=== PATIENT | male | born 1995 | race Two or more races ===

== ENCOUNTER 2024-08-21 10:12 | Outpatient (AMB) | payer MEDICAID, SELFPAY ==
[2024-08-21 10:17] VITALS: BP 122/68; PULSE 73; RESP 19; TEMP 36.7; O2SAT 97; BMI 30.2
--- NOTE | 2024-08-21 10:17 | PD.RESCLINIC ---
Vital Signs 08/21/24 10:17 Height 1.7 m Height Method Stated Weight 87.203 kg Weight Measurement Method Standing Scale BMI 30.2 BP 122/68 Blood Pressure Source Automatic Cuff Blood Pressure Location Left Upper Arm Position Sitting Respiration 19 Pulse 73 Pulse Source Monitor Temp 98.1 F Temp Source Oral Pulse Oximetry (%) 97 Oxygen Delivery Method Room Air Allergies/Meds Allergies & Medications Allergies No Known Allergies Allergy (Verified 08/21/24 10:18) Medication Reconciliation buspirone 5 mg tablet 5 mg PO BID anxiety #60 tabs 07/24/24 [Rx Confirmed 08/21/24] sertraline 50 mg tablet 50 mg PO QDAY #30 tabs 07/24/24 [Rx Confirmed 08/21/24] nicotine 21mg/24hr-14mg/24hr-7mg/24hr daily transderm patches,sequentl See Rx Instructions transdermal .COMPLEX #56 patches 08/21/24 [Rx] MA Intake Visit Data Collection New Patient or Established: Established Patient (seen at [facility] within 3 years) Seen by Clinical Staff ONLY (RN/MA): No Pain Present Currently: No Pain scale:: 0 Pain Scale Used: Pavon-Naylor/Numerical PCP or OBGYN visit in last 3 months: Yes Do You Feel Safe at Home: Yes Authorities Contacted: N/A Smoking Status Smoking Status: Former smoker Immunization / Flu Flu Vaccine in the Last 12 Months: No Flu Vaccine Exclusion Criteria: No Exclusion Criteria Past Medical History Past Medical History NEUROLOGIC: Negative Neurological Disorders CARDIAC: Negative Cardiac Disorders or Congestive Heart Failure RESPIRATORY: Negative Chronic Obstructive Pulmonary Disease (COPD) GASTROINTESTINAL: Negative Gastrointestinal Disorders or Hepatitis GENITOURINARY: Negative Genitourinary Disorders or Renal Disease ENDOCRINE: Positive Endocrine Disorders and Diabetes Mellitus Type 2; Negative Diabetes Mellitus Type 1 HEMATOLOGIC: Negative Blood Disorders OTHER HISTORY: Negative Human Immunodeficiency Virus (HIV), Chicken Pox, Measles, Mumps, Rubella (English Measles), Pertussis, Clostridium Difficile or Cancer Social History SMOKING STATUS: Smoking status: Former smoker SECOND HAND EXPOSURE: second hand exposure: No ALCOHOL: Alcohol Intake: Never HOUSING: Housing: House LIVES WITH: Lives With: Significant Other Patient Portal Questionaires PHQ-9 PHQ-2 Over the last 2 weeks, how often have you been bothered by any of the following problems? 1. Little interest or pleasure in doing things: nearly every day PHQ-9 8. Moving or speaking so slowly that other people could have noticed? - Or the opposite - being so fidgety or restless that you have been moving around a lot more than usual: more than half the days Source: Developed by Drs. Karlo Rice, Rosalina Cueva, Rob Gregory and colleagues, with an educational bj from [employer]. Social History Living Situation History Housing: House Tobacco History Smoking Status: Former smoker tobacco type: e-cigarettes Second Hand Smoke Exposure: No Alcohol History Alcohol Intake: Never Domestic Abuse History Do You Feel Safe at Home: Yes Review of Systems Report any current symptoms Only answer those that you have currently: Past Medical History Past Medical History Have you ever been diagnosed with any of the following: Cardiology Problems Congestive Heart Failure: No Respiratory Problems Chronic Obstructive Pulmonary Disease (COPD): No Stomache/Intestinal Problems Hepatitis: No Genital/Urinary Problems Renal Disease: No Endocrine Problems Diabetes Mellitus Type 1: No Diabetes Mellitus Type 2: Yes Other Problems Human Immunodeficiency Virus (HIV): No Chicken Pox: No Measles: No Mumps: No Rubella (English Measles): No Pertussis: No Clostridium Difficile: No Cancer: No History of Present Illness HPI Narrative Patient is a 28 year old male with a past medical history of poly-substance use disorder (cocaine and marijuana use) and history of major depression. One previous visit patient had an elevated blood surgar and treated for DKA in 2022 and during that time was place on metformin and Rybelsus. Since 2023, patient has not required any diabetic medication and is currently has been abstient of cocaine and marijuan since previous visit (July 2024). Patient diened any symptoms of diabetes such as polyuria or polydispsia. Increase in weight, likley from decrease cocaine use. Patient still struggles with eating candies like choclate but has cut back significantly. Jerry also stated his anxiety has improved with with Buspirone 5 mg PO BID and Sertraline 50 mg QDay. Has two months of refills. Jerry followed up on his labs. A1c 6.1 and Chlaymdia and Gonorrhea are negative. Follow up with provider in 8 weeks for medication refills via phone follow. Review of Systems Review of Systems Narrative Review of Systems: General appearance: NO weight change, NO fatigue, NO weakness, NO fever, NO chills, NO night sweats, No cough Skin: NO rash, NO itching, NO sores, NO moles HEENT: NO Trauma, NO nausea, NO vomiting, NO visual changes, NO blurry vision, NO double vision, NO tinnitus, NO vertigo, NO ear discharge, NO rhinorrhea, NO stuffiness, NO sneezing, NO allergy, NO epistaxis. NO Hoarseness, NO sore throat, NO swollen neck. Cardiac: NO Palpitations, NO dyspnea on exertion, NO orthopnea, NO paroxysmal nocturnal dyspnea, NO edema Respiratory: NO Shortness of Breath, NO Wheezing, NO Cough, NO Sputum, NO hemoptysis GI:NO appetite, NO nausea, NO vomiting, NO dysphagia, NO changes in bowel frequency, NO stool color, NO diarrhea, NO constipation, NO hemetemesis, NO hemorrhoids, NO melena, NO hematechezia, NO abdominal pain, NO jaundice Renal: NO frequency, NO hesitancy, NO urgency, NO hematuria, NO nocturia, NO incontinence MSK: NO muscle weakness, NO gout, NO arthritis, NO muscle stiffness Neuro: NO headaches, NO tremors, NO weakness, NO paralysis, NO seizures, NO loss of consciousness, NO numbness. Hem: NO anemia, NO easy bruising/bleeding, NO petechiae, NO purpura Endo: NO heat/cold intolerance, NO excessive sweating, NO polyuria, NO polydipsia, NO polyphagia, NO thyroid problems, NO diabetes Pysch: NO mood, YES anxiety, YES depression Objective/Exam Narrative Physical exam: Vitals: T 98.1, BP 122/68, HR 73, RR 19, SpO2 97 General Appearance: Alert and Orientated x3, well-nourished male who is sitting on exam room in no acute ditress Thorax/Lungs: Symmetrical with good expansion. Chest and back non-tender. Lungs resonant to percussion. Breath sounds vesicular without crackles, wheezes, or rhonchi Cardiovascular/Peripheral Vascular: No jugular venous distention noted. S1 and S2 heart sounds regular, no murmurs or extra heart sounds auscultated. No peripheral edema noted. Abdomen: Bowel sounds are active. No tenderness to deep or light palpation. Assessment & Plan Diagnosis / Problem List (1) Anxiety: Status: Acute Assessment & Plan: Patient continues to remain abstinent from cocaine and marijuarn. Patient stated his anxiety has improved and feels Buspirone 5 mg BID has worked for him without any side effects. Plan: Continue Buspirone 5 mg BID Nicotine Patch Follow up in 8 weeks with telephone interview (2) Depression: Status: Acute Qualifiers: Active/Remission status: currently active Depression Type: major depressive disorder Major depression episode severity: moderate Major depression recurrence: recurrent Qualified Code(s): F33.1 - Major depressive disorder, recurrent, moderate Assessment & Plan: Patient denied suicide thoughts or thoughts of harming himself/others. Some of the depression was initially from a break up from his long time girlfriend/partner but during this visit he has come to realize he is doing ok and thinks its for the best. Plan: -Continue Sertraline 50 mg PO Qday -Would like to follow up with a psychologist. Additional Assessment - The patient's plan was discussed with attending Dr. Pro. Radha Verdin MD PGY1 Internal Medicine Attending note: I, Haroon Pro MD, attest that I was physically present for the weeks portions of the service and evaluated the patient with the resident and I reviewed and discussed the case with the resident and agree with the resident's findings and plans of care as documented above. Follow-up visit. Hemoglobin A1c of 6.1 is at goal without medication. Diabetes self-care reviewed including diet, exercise, footcare, eye care.. Anxiety improved with current medication regimen. STI testing negative. Haroon Pro MD Physician Billing Established Patient Established Patient: E/M Level 3-CPT 62677 Office Procedures [facility] Level of Care Nursing/Assessment Patient Status: Established Patient Nursing Assessment/Reassessment: Medication Reconciliation, Update PMH in EMR and Vital Signs Coordination of Care: Complex Care and Chronic Disease 1-5, Education Complex Pt/Fam, Results/Orders obtained and Staff clarify orders Established Patient Charge Established Patient Point Assignment: 90 Established Patient Point Charge: Level 3 (80-115)
== END 2024-08-21 11:11 | disposition home or self-care (01) ==
LOC: HODAHC 10:12
PROVIDERS: Supervising Provider Internal Medicine
DX: F41.9 Anxiety disorder, unspecified (principal); F32.9 Major depressive disorder, single episode, unspecified; Z79.899 Other long term (current) drug therapy
CPT/HCPCS: 99213; G0463

== ENCOUNTER 2024-10-30 09:23 | Outpatient (AMB) | payer MEDICAID, SELFPAY ==
--- NOTE | 2024-10-30 09:45 | ACNOTE_ITS ---
Vital Signs 10/30/24 09:46 Height 1.78 m Height Method Stated Weight 88.451 kg Weight Measurement Method Standing Scale BMI 27.9 BP 126/74 Blood Pressure Source Automatic Cuff Blood Pressure Location Left Upper Arm Position Sitting Respiration 17 Pulse 86 Pulse Source Monitor Temp 97.6 F Temp Source Temporal Artery Scan Pulse Oximetry (%) 93 L Oxygen Delivery Method Room Air Allergies/Meds Allergies & Medications Allergies No Known Allergies Allergy (Verified 10/30/24 09:47) Medication Reconciliation buspirone 5 mg tablet 5 mg PO BID anxiety #60 tabs 10/30/24 [Rx] sertraline 50 mg tablet 50 mg PO QDAY #30 tabs 10/30/24 [Rx] MA Intake Visit Data Collection New Patient or Established: Established Patient (seen at [facility] within 3 years) Seen by Clinical Staff ONLY (RN/MA): No Pain Present Currently: No Pain scale:: 0 Pain Scale Used: Pavon-Naylor/Numerical Visual Designer Required: No PCP or OBGYN visit in last 3 months: Yes Hx Now: No Do You Feel Safe at Home: Yes Authorities Contacted: N/A Smoking Status Smoking Status: Former smoker Immunization / Flu Flu Vaccine in the Last 12 Months: No Flu Vaccine Exclusion Criteria: No Exclusion Criteria Past Medical History Past Medical History NEUROLOGIC: Negative Neurological Disorders CARDIAC: Negative Cardiac Disorders or Congestive Heart Failure RESPIRATORY: Negative Chronic Obstructive Pulmonary Disease (COPD) GASTROINTESTINAL: Negative Gastrointestinal Disorders or Hepatitis GENITOURINARY: Negative Genitourinary Disorders or Renal Disease ENDOCRINE: Positive Endocrine Disorders and Diabetes Mellitus Type 2; Negative Diabetes Mellitus Type 1 HEMATOLOGIC: Negative Blood Disorders OTHER HISTORY: Negative Human Immunodeficiency Virus (HIV), Chicken Pox, Measles, Mumps, Rubella (Guyanese Measles), Pertussis, Clostridium Difficile or Cancer Social History SMOKING STATUS: Smoking status: Former smoker SECOND HAND EXPOSURE: second hand exposure: No ALCOHOL: Alcohol Intake: Never HOUSING: Housing: House LIVES WITH: Lives With: Significant Other Patient Portal Questionaires PHQ-9 PHQ-2 Over the last 2 weeks, how often have you been bothered by any of the following problems? 1. Little interest or pleasure in doing things: nearly every day PHQ-9 8. Moving or speaking so slowly that other people could have noticed? - Or the opposite - being so fidgety or restless that you have been moving around a lot more than usual: more than half the days Source: Developed by Drs. Karlo Rice, Rosalina Cueva, Rob Gregory and colleagues, with an educational bj from [employer]. Social History Living Situation History Housing: House Tobacco History Smoking Status: Former smoker tobacco type: e-cigarettes Second Hand Smoke Exposure: No Alcohol History Alcohol Intake: Never Domestic Abuse History Do You Feel Safe at Home: Yes Review of Systems Report any current symptoms Only answer those that you have currently: Past Medical History Past Medical History Have you ever been diagnosed with any of the following: Cardiology Problems Congestive Heart Failure: No Respiratory Problems Chronic Obstructive Pulmonary Disease (COPD): No Stomache/Intestinal Problems Hepatitis: No Genital/Urinary Problems Renal Disease: No Endocrine Problems Diabetes Mellitus Type 1: No Diabetes Mellitus Type 2: Yes Other Problems Human Immunodeficiency Virus (HIV): No Chicken Pox: No Measles: No Mumps: No Rubella (Guyanese Measles): No Pertussis: No Clostridium Difficile: No Cancer: No History of Present Illness HPI Narrative Patient is a 28 year old male with a past medical history of poly-substance use disorder (cocaine and marijuana use), major depression, and generalized anxiety. Patient denied any substance use since July 2024 and improved weight since July 2024 when he was still using cocaine. Patient denied any suicidal ideation or thoughts of harming others. Current PHQ 9-0. Improved LOUIE at 3. Decreased overall days of anxiety and intrusive thoughts. Patient has continued to take Buspirone 5 mg PO BID and Sertraline 50 mg PO QDay. Nicotine patch did not help despite changing it frequently. Patient declined nicotine gum. Continues to vape one cartridge per week. Patient denied polyuria or polydipsia. Patient has had increased intake of soda recently. Patient counseled that increased sugar in-take puts him at risk of diabetes given previous A1c 6.2% Please follow up in 6 months to determine re-evaluate LOUIE and Depression. Review of Systems Review of Systems Narrative Review of Systems: General appearance: Yes weight change as polysubstance use has decreased, NO fatigue, NO weakness, NO fever, NO chills, NO night sweats, No cough Skin: NO rash, NO itching, NO sores, NO moles HEENT: NO Trauma, NO nausea, NO vomiting, NO visual changes, NO blurry vision, NO double vision, NO tinnitus, NO vertigo, NO ear discharge, NO rhinorrhea, NO stuffiness, NO sneezing, NO allergy, NO epistaxis. NO Hoarseness, NO sore throat, NO swollen neck. Cardiac: NO Palpitations, NO dyspnea on exertion, NO orthopnea, NO paroxysmal nocturnal dyspnea, NO edema Respiratory: NO Shortness of Breath, NO Wheezing, NO Cough, NO Sputum, NO hemoptysis GI:NO appetite, NO nausea, NO vomiting, NO dysphagia, NO changes in bowel frequency, NO stool color, NO diarrhea, NO constipation, NO hemetemesis, NO hemorrhoids, NO melena, NO hematechezia, NO abdominal pain, NO jaundice Renal: NO frequency, NO hesitancy, NO urgency, NO hematuria, NO nocturia, NO incontinence MSK: NO muscle weakness, NO gout, NO arthritis, NO muscle stiffness Neuro: NO headaches, NO tremors, NO weakness, NO paralysis, NO seizures, NO loss of consciousness, NO numbness. Hem: NO anemia, NO easy bruising/bleeding, NO petechiae, NO purpura Endo: NO heat/cold intolerance, NO excessive sweating, NO polyuria, NO polydipsia, NO polyphagia, NO thyroid problems, NO diabetes Pysch: NO mood, IMPROVED anxiety, IMPROVED Depression Objective/Exam Narrative Physical exam: Vitals: BP 126/74, HR 86 RR 17 General Appearance: Alert and Orientated x3, well-nourished Male who is sitting in exam room Thorax/Lungs: Symmetrical with good expansion. Chest and back non-tender. Lungs resonant to percussion. Breath sounds vesicular without crackles, wheezes, or rhonchi Cardiovascular/Peripheral Vascular: No jugular venous distention noted. S1 and S2 heart sounds regular, no murmurs or extra heart sounds auscultated. No peripheral edema noted. Abdomen: Bowel sounds are active. No tenderness to deep or light palpation. Assessment & Plan Diagnosis / Problem List (1) Anxiety: Status: Acute Assessment & Plan: Improved Generalized Anxiety, LOIUE score of 3. Denied substance use recently. Plan: Continue Buspirone 5 mg BID Follow up in 6 months (2) Depression: Status: Acute Qualifiers: Active/Remission status: currently active Depression Type: major depressive disorder Major depression episode severity: moderate Major depression recurrence: recurrent Qualified Code(s): F33.1 - Major depressive disorder, recurrent, moderate Assessment & Plan: Improved PHQ 9-0. Denied suicidal ideation or thought of hurting others. Follow up in 6 months. Plan Sertraline 50 mg PO QDay. Additional Assessment Master Problem List Generalized Anxiety Depression Poly-substance Use Disorder (Marijuana and Cocaine) Nicotine Use Disorder (vapes) history of Diabetes Mellitus Type II, medication D/C, most recent A1c 6.2% Follow Up: 6 months follow up for LOUIE and Depression Scores: PHQ9 =0 GAD7=3 - The patient's plan was discussed with attending Dr. Inocencia Verdin MD PGY1 Internal Medicine Additional Plan Internal Medicine Attending Note: Case discussed with and agree with note and management plan of Resident Physician as per Resident's Note above. Issues of concern for present visit are as follows: Follow-up visit. History of major depression along with generalized anxiety. Symptoms improved with sertraline and buspirone. Patient continues nicotine use through a vape 1 cartridge per week. Continue present medications as patient is doing well with these. Patient did try nicotine patches but did not help with nicotine use. Haroon Pro MD Physician Billing Established Patient Established Patient: E/M Level 3-CPT 70460 Office Procedures [facility] Level of Care Nursing/Assessment Patient Status: Established Patient Nursing Assessment/Reassessment: Medication Reconciliation, Update PMH in EMR and Vital Signs Coordination of Care: Complex Care and Chronic Disease 1-5, Consent,records obtained, informed consent, Education Simp Pt/Fam, Lab and Imaging orders and Staff clarify orders Established Patient Charge Established Patient Point Assignment: 100 Established Patient Point Charge: EP Level 3 (80-115)
[2024-10-30 09:46] VITALS: BP 126/74; PULSE 86; RESP 17; TEMP 36.4; O2SAT 93; BMI 27.9
== END 2024-10-30 09:56 | disposition home or self-care (01) ==
PROVIDERS: Supervising Provider Internal Medicine
DX: F41.1 Generalized anxiety disorder (principal); F33.9 Major depressive disorder, recurrent, unspecified
CPT/HCPCS: 99213; G0463

== ENCOUNTER 2024-11-29 10:52 | Outpatient (AMB) | payer MEDICAID, SELFPAY ==
[2024-11-29 10:58] VITALS: BP 118/73; PULSE 74; RESP 14; TEMP 36.6; O2SAT 98; BMI 24.2
--- NOTE | 2024-11-29 10:58 | PD.RESCLINIC ---
Vital Signs 11/29/24 10:58 Height 1.78 m Height Method Stated Weight 76.657 kg Weight Measurement Method Standing Scale BMI 24.2 BP 118/73 Blood Pressure Source Automatic Cuff Blood Pressure Location Left Upper Arm Position Sitting Respiration 14 Pulse 74 Pulse Source Monitor Temp 97.8 F Temp Source Oral Pulse Oximetry (%) 98 Oxygen Delivery Method Room Air Allergies/Meds Allergies & Medications Allergies No Known Allergies Allergy (Verified 12/02/24 13:49) Medication Reconciliation buspirone 5 mg tablet 5 mg PO BID anxiety #60 tabs 10/30/24 [Rx Confirmed 12/02/24] sertraline 50 mg tablet 50 mg PO QDAY #30 tabs 10/30/24 [Rx Confirmed 12/02/24] famotidine 40 mg tablet 40 mg PO QDAY dyspepsia #14 tabs 11/29/24 [Rx Confirmed 12/02/24] ondansetron 4 mg disintegrating tablet 4 mg PO Q6H PRN nausea and vomiting #14 tabs 11/29/24 [Rx Confirmed 12/02/24] 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 sensor (FreeStyle Ramya 3 Sensor device) #1 ea 12/02/24 [Rx] insulin glargine 100 unit/mL (3 mL) subcutaneous pen 15 unit (0.15 mL) subcut QDAY 1 month #15 mL 12/02/24 [Rx] insulin lispro 100 unit/mL subcutaneous pen (Admelog SoloStar U-100 Insulin lispro) 5 unit (0.05 mL) subcut TID #15 mL 12/02/24 [Rx] pen needle, diabetic 32 gauge x 1/4 #100 ea 12/02/24 [Rx] MA Intake Visit Data Collection New Patient or Established: Established Patient (seen at [facility] within 3 years) Seen by Clinical Staff ONLY (RN/MA): No Reason for Visit:: NAUSEA, VOMITING, HEADACHES, AND CHEST DISCOMFORT. Pain Present Currently: No Pain scale:: 0 Pain Scale Used: PavonYairNaylor/[employer] Required: Yes PCP or OBGYN visit in last 3 months: Yes Date of Last PCP or OBGYN visit: 10/30/24 Hx Now: No Do You Feel Safe at Home: Yes Authorities Contacted: N/A Smoking Status Smoking Status: Former smoker Immunization / Flu Flu Vaccine in the Last 12 Months: No Flu Vaccine Exclusion Criteria: No Exclusion Criteria Past Medical History Past Medical History NEUROLOGIC: Negative Neurological Disorders CARDIAC: Negative Cardiac Disorders or Congestive Heart Failure RESPIRATORY: Negative Chronic Obstructive Pulmonary Disease (COPD) GASTROINTESTINAL: Negative Gastrointestinal Disorders or Hepatitis GENITOURINARY: Negative Genitourinary Disorders or Renal Disease ENDOCRINE: Positive Endocrine Disorders and Diabetes Mellitus Type 2; Negative Diabetes Mellitus Type 1 HEMATOLOGIC: Negative Blood Disorders OTHER HISTORY: Negative Human Immunodeficiency Virus (HIV), Chicken Pox, Measles, Mumps, Rubella ([place] Measles), Pertussis, Clostridium Difficile or Cancer Social History SMOKING STATUS: Smoking status: Former smoker SECOND HAND EXPOSURE: second hand exposure: No ALCOHOL: Alcohol Intake: Never HOUSING: Housing: House LIVES WITH: Lives With: Significant Other Patient Portal Questionaires PHQ-9 PHQ-2 Over the last 2 weeks, how often have you been bothered by any of the following problems? 1. Little interest or pleasure in doing things: not at all 2. Feeling down, depressed, or hopeless: not at all Total score: 0 PHQ-9 3. Trouble falling or staying asleep, or sleeping too much: Not at all 4. Feeling tired or having little energy: Not at all 5. Poor appetite or overeating: Not at all 6. Feeling bad about yourself - or that you are a failure or have let yourself or your family down: Not at all 7. Trouble concentrating on things, such as reading the newspaper or watching television: Not at all 8. Moving or speaking so slowly that other people could have noticed? - Or the opposite - being so fidgety or restless that you have been moving around a lot more than usual: not at all 9. Thoughts that you would be better off or of hurting yourself in some way: Not at all Total score: 0 Source: Developed by Drs. Karlo Rice, Rosalina Cueva, Rob Gregory and colleagues, with an educational bj from [employer]. Depression screen completed yes Social History Living Situation History Housing: House Tobacco History Smoking Status: Former smoker tobacco type: e-cigarettes Second Hand Smoke Exposure: No Alcohol History Alcohol Intake: Never Domestic Abuse History Do You Feel Safe at Home: Yes Review of Systems Report any current symptoms Only answer those that you have currently: Past Medical History Past Medical History Have you ever been diagnosed with any of the following: Cardiology Problems Congestive Heart Failure: No Respiratory Problems Chronic Obstructive Pulmonary Disease (COPD): No Stomache/Intestinal Problems Hepatitis: No Genital/Urinary Problems Renal Disease: No Endocrine Problems Diabetes Mellitus Type 1: No Diabetes Mellitus Type 2: Yes Other Problems Human Immunodeficiency Virus (HIV): No Chicken Pox: No Measles: No Mumps: No Rubella ([place] Measles): No Pertussis: No Clostridium Difficile: No Cancer: No History of Present Illness HPI Narrative the patient is a 29 yr old male , with past medical history of depression, anxiety and substance abuse disorder (cocaine/marijuana)r, as well as history of Diabetes mellitus type 2 , not on any medications for diabetes at the moment, last a1c pre diabetic range, walked into clinic complaining of epigastric discomfort and nausea / vomiting. Pt reported that he has been having pain in his epigastrium , Describes the pain as burning sensation in the chest points to epigastric region. discomfort aggravating after meals and associated with nausea and couple episodes of vomiting. Pt reported being abstinent of marijuana for the past few weeks and cocaine for the past few months. Reported adequate urine output. denied hematemesis, diaphorseis, shortness of breath, diarrhea or fever. Objective/Exam Narrative Physical exam: General: AOx3, cooperative but anxious Skin: Intact, no cyanosis or edema noted. HEENT: Atraumatic/normocephalic, KENJI, neck supple Heart: RRR, S1 and S2 without clicks or murmurs Lungs: Clear on auscultation bilaterally, no difficulty breathing Abdomen: Soft, nontender. Bowel sounds present . Vascular: Peripheral pulses palpable Neuro: No focal neurological deficits noted. Assessment & Plan Diagnosis / Problem List (1) Dyspepsia and disorder of function of stomach: Status: Acute Assessment & Plan: Epigastric discomfort , burning in character, associated woth nausea nd vomiting, worse after meals, likely related to dyspepsia, less likely cardiac origin given history and presentation. Plan: - Famotidine 40mg qday - Zofran as needed for nausea (2) Depression: Status: Acute Qualifiers: Depression Type: major depressive disorder Major depression recurrence: recurrent Active/Remission status: currently active Major depression episode severity: moderate Qualified Code(s): F33.1 - Major depressive disorder, recurrent, moderate Assessment & Plan: respoding well to treatment, reports improvement of symptoms with medication us, less frequent anxiety and insomnia. Plan: - continue sertraline and buspirone (3) Diabetes mellitus type 2, noninsulin dependent: Status: Acute Assessment & Plan: pt has a history of DM , workup shows normal c peptide levels and negative Islet cell antibodies, Type 2 diabetes mellitus was previously prescribed metformin and rybelsus, currently not on any medications, last a1c pre-diabetic range, 6.1 %, currently managed with life style modifications. Plan: - continue life style modifications. Office Procedures [facility] Level of Care Nursing/Assessment Patient Status: Established Patient Nursing Assessment/Reassessment: Medication Reconciliation, Update PMH in EMR and Vital Signs Coordination of Care: Complex Care and Chronic Disease 1-5, Consent,records obtained, informed consent, Education Simp Pt/Fam, Lab and Imaging orders and Staff clarify orders Established Patient Charge Established Patient Point Assignment: 100 Established Patient Point Charge: Level 3 (80-115)
== END 2024-11-29 11:21 | disposition home or self-care (01) ==
LOC: HODAHC 10:52
PROVIDERS: Supervising Provider Student in an Organized Health Care Education/Training Program; Visit Provider Student in an Organized Health Care Education/Training Program
DX: R10.13 Epigastric pain (principal); E11.9 Type 2 diabetes mellitus without complications; F41.9 Anxiety disorder, unspecified; F33.1 Major depressive disorder, recurrent, moderate
CPT/HCPCS: 99213; G0463

== ENCOUNTER 2024-12-01 15:38 | Emergency (ER) | payer MEDICAID, SELFPAY ==
[2024-12-01 15:50] VITALS: BP 126/70; PULSE 103; RESP 16; TEMP 37; O2SAT 95; BMI 24.2
--- NOTE | 2024-12-01 15:55 | PD.EDRME ---
Rapid Medical Screening Exam E Arrival date/time: 12/01/24 15:38 29-year-old male with a history of insulin-dependent diabetes mellitus presents to the emergency room with a chief complaint of a critically high blood sugar reading. Patient states his glucometer reads critically high. I have greeted and performed a focused initial assessment of this patient. A comprehensive ED assessment and evaluation of the patient, analysis of all test results, and completion of the medical decision making process will be conducted by additional ED providers. Chief Complaint: General Adult/Misc Complain Time Seen by Provider: 12/01/24 15:44 Vital signs: Vital Signs Temperature 98.6 F 12/01/24 15:50 Pulse Rate 103 H 12/01/24 15:50 Respiratory Rate 16 12/01/24 15:50 Blood Pressure 126/70 12/01/24 15:50 Pulse Oximetry (%) 95 12/01/24 15:50 Oxygen Delivery Method Room Air 12/01/24 15:50 Vital signs reviewed by provider: Yes
[2024-12-01 16:31] LABS: Basophils % (Auto) 0 % (0-2.5); Eosinophils % (Auto) 1 % (0-10); Hematocrit 42.1 % (41.0-53.0); Hemoglobin 14.7 g/dL (13.5-16.0); Immature Granulocytes % (Auto) 0 % (0-0); Immature Granulocytes Auto 0.01 Thou/mm3 (0.00-0.00); Lymphocytes # (Auto) 1.6 Thou/mm3 (1.0-4.8); Lymphocytes % (Auto) 24 % (10-50); Mean Corpuscular HGB Conc 34.9 g/dl (31.0-37.0); Mean Corpuscular Hemoglobin 26.6 pg (25.0-35.0); Mean Corpuscular Volume 76 fL (80-100); Monocytes # (Auto) 0.4 Thou/mm3 (0.0-0.8); Monocytes % (Auto) 6 % (0-12); Neutrophils # (Auto) 4.8 Thou/mm3 (1.8-7.7); Neutrophils % (Auto) 70 % (37-80); Nucleated Red Blood Cell % 0 /100 WBC (0); Platelet Count 192 Thou/mm3 (140-440); RDW Standard Deviation 34.7 fL (35.1-43.9); Red Blood Count 5.53 Miln/mm3 (4.50-5.90); White Blood Count 6.8 Thou/mm3 (3.8-10.6)
[2024-12-01] MEDS: SODIUM CHLORIDE 0.9% 1000 ML 1,000 ML 999 ML IV ×3 (16:35→19:03)
[2024-12-01] MEDS: ONDANSETRON ODT 4 MG TABRAP PO (16:37)
[2024-12-01 16:43] LABS: Beta Hydroxybutyrate 3.8 mmol/L (<0.6)
[2024-12-01 17:05] LABS: Collection Type, Urine Clean Catch
--- NOTE | 2024-12-01 17:27 | PD.EDADULT ---
ED General RME/HPI General Chief complaint: General Adult/Misc Complain Stated complaint: HIGH BLOOD SUGAR Time Seen by Provider: 12/01/24 15:44 Arrival date/time: 12/01/24 15:38 This this is a 29-year-old male that comes in with complaints of high blood sugar. Patient has no other complaints at this time. Patient denies fever, chills, nausea, vomiting, diarrhea. Patient states that he was recently told that he does not need to take his diabetes medications because he is controlled. Patient also has a history of depression and diabetes. RME / HPI RME / HPI narrative: 12/01/24 15:38 29-year-old male with a history of insulin-dependent diabetes mellitus presents to the emergency room with a chief complaint of a critically high blood sugar reading. Patient states his glucometer reads critically high. I have greeted and performed a focused initial assessment of this patient. A comprehensive ED assessment and evaluation of the patient, analysis of all test results, and completion of the medical decision making process will be conducted by additional ED providers. Related Data Previous Rx's ?Medication ?Instructions ?Recorded buspirone 5 mg tablet 5 mg PO BID anxiety #60 tabs 10/30/24 sertraline 50 mg tablet 50 mg PO QDAY #30 tabs 10/30/24 famotidine 40 mg tablet 40 mg PO QDAY dyspepsia #14 tabs 11/29/24 ondansetron 4 mg disintegrating 4 mg PO Q6H PRN nausea and 11/29/24 tablet vomiting #14 tabs 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 sensor (FreeStyle #1 ea 12/02/24 Ramya 3 Sensor device) insulin glargine 100 unit/mL (3 15 unit (0.15 mL) subcut QDAY 1 12/02/24 mL) subcutaneous pen month #15 mL insulin lispro 100 unit/mL 5 unit (0.05 mL) subcut TID #15 mL 12/02/24 subcutaneous pen (Admelog SoloStar U-100 Insulin lispro) pen needle, diabetic 32 gauge x #100 ea 12/02/24/ Allergies Allergy/AdvReac Type Severity Reaction Status Date / Time No Known Allergies Allergy Verified 12/02/24 13:49 Review of Systems Review of Systems Systems Reviewed: All systems reviewed, normal except as documented Past Medical History Social History SMOKING STATUS: Light (< 1 pack/day) Past Medical History Comments PMH COMMENT: He smokes electric cigarettes occasionally. No drugs, no alcohol. ED Exam General General appearance: Present alert and in no apparent distress Head Head exam: Present atraumatic Eye Eye exam: Present normal appearance, PERRL and EOMI ENT ENT exam: Present normal exam, normal oropharynx and mucous membranes moist Neck Neck exam: Present normal inspection, full ROM and trachea midline Chest Chest inspection: Present normal inspection and symmetric chest wall rise Respiratory Respiratory exam: Present normal lung sounds bilaterally Cardiovascular Cardiovascular exam: Present regular rate, normal rhythm and normal heart sounds Abdominal Exam Abdominal exam: Present soft Extremities Exam Extremities exam: Present normal inspection and full ROM Back Exam Back exam: Present normal inspection and full ROM Neurological Exam Neurological exam: Present alert, oriented X3 and CN II-XII intact Psychiatric Psychiatric exam: Present normal affect and normal mood Skin Skin exam: Present warm, dry, intact and normal color Course Quality Measures none Orders Category Date Time Status Fingerstick [Bedside Blood Glucose] NOW Care 12/01/24 15:54 Completed Glucose [Bedside Blood Glucose] NOW Care 12/01/24 20:48 Completed Insert IV STAT Care 12/01/24 15:54 Completed Alcohol, Blood Medical Stat Lab 12/01/24 16:11 Completed Beta Hydroxybutyrate Stat Lab 12/01/24 16:11 Completed CBC Stat Lab 12/01/24 16:11 Completed CMP [Comprehensive Metabolic Panel] Stat Lab 12/01/24 16:11 Completed Comprehensive Metabolic Panel Stat Lab 12/01/24 18:47 Completed Drug Screen,Urine Stat Lab 12/01/24 16:58 Completed Lipase Stat Lab 12/01/24 16:11 Completed UA [Urinalysis] Stat Lab 12/01/24 16:58 Completed Urine Culture Stat Lab 12/01/24 16:58 Completed Insulin Regular Med 12/01/24 22:10 Discontinued 5 unit SC X1 ONE Ondansetron Odt [Zofran Odt] Med 12/01/24 15:54 Discontinued 4 mg PO X1 ONE Sodium Chloride 0.9% 1000 ml [Ns] 1,000 ml Med 12/01/24 15:57 Discontinued IV 999 mls/hr Sodium Chloride 0.9% 1000 ml [Ns] 1,000 ml Med 12/01/24 17:31 Discontinued IV 999 mls/hr Sodium Chloride 0.9% 1000 ml [Ns] 1,000 ml Med 12/01/24 17:56 Discontinued IV 999 mls/hr Vital Signs Vital signs: Vital Signs Temperature 98.6 F 12/01/24 15:50 Pulse Rate 103 H 12/01/24 15:50 Respiratory Rate 16 12/01/24 15:50 Blood Pressure 126/70 12/01/24 15:50 Pulse Oximetry (%) 95 12/01/24 15:50 Oxygen Delivery Method Room Air 12/01/24 15:50 [facility] Patient data External records reviewed:: [facility] previous records Clinical information provided by:: patient Social determinants that could affect healthcare access:: none Patient has the following chronic illnesses:: see hpi How is presenting disease/condition affected by chronic disease/condition?: exacerbated by Evaluation data The following diagnostics were reviewed and interpreted by me:: lab results Lab and/or radiology exams considered but not ordered:: none Interpretation Summary: see note Medications Medications considered but not ordered:: none Medication administrations:: Medication Administration History Discontinued Medications Sodium Chloride (Ns) 1,000 mls @ 999 mls/hr IV .Q1H1M ONE Stop: 12/01/24 16:57 Last Infusion: 12/01/24 18:40 Dose: Infused Documented By: Admin: 12/01/24 16:35 Dose: 999 mls/hr Documented By: ANDERSON Sodium Chloride (Ns) 1,000 mls @ 999 mls/hr IV .Q1H1M ONE Stop: 12/01/24 18:31 Last Infusion: 12/01/24 19:40 Dose: Infused Documented By: Admin: 12/01/24 17:38 Dose: 999 mls/hr Documented By: ANDERSON Sodium Chloride (Ns) 1,000 mls @ 999 mls/hr IV .Q1H1M ONE Stop: 12/01/24 18:56 Last Infusion: 12/01/24 20:20 Dose: Infused Documented By: Admin: 12/01/24 19:03 Dose: 999 mls/hr Documented By: ANDERSON Insulin Human Regular (Insulin Hum Regular 1 Unit/0.01 Ml (Per Unit)) 5 unit SC X1 ONE Stop: 12/01/24 22:11 Last Admin: 12/01/24 22:26 Dose: 5 unit Documented By: CARMEN Co-signed By: EDENILSON Ondansetron HCl (Ondansetron Odt 4 Mg Tabrap) 4 mg PO X1 ONE; Protocol Stop: 12/01/24 15:55 Last Admin: 12/01/24 16:37 Dose: 4 mg Documented By: JT see mar Consultations Consultation(s) initiated? (list below): No Diagnosis Differential Diagnosis ED Complaint MDM: dka, uti, hyperemesis secondary to marijuana use, dehydration Most likely diagnosis given after review of the tests above:: dehydration, uncontrolled diabtes Admission Indicated Admission indicated?: not indicated Explain why admission is indicated or not indicated:: pt improved Admission Request Was there a request for admission?: No Disposition Plan Disposition Plan: Discharge Discharge Attestation Discharge Attestation: The patient and all family members were given an opportunity to ask questions and understood the discharge instructions. Discharge instructions specifically effects, indications for sooner follow up or return to the emergency department, and the expected course of current diagnosis. Patient condition: Stable Medical Decision Making MDM Narrative MDM Narrative: Spoke to patient at bedside states that he would not come to the emergency room if his blood sugar was and elevated. Patient denies any symptoms. Labs reviewed CBC unremarkable CMP sodium of 128 potassium 5.1, chloride 92, bicarb 20.4 anion gap 16, BUN and creatinine 15 and 1.5 glucose 770. LFTs show alk phos of 222 AST is less than 10 ALT is 11 lipase 53 beta hydroxybutyrate of 3.8. Urine positive for glucose and UA unremarkable drug screen shows cocaine and marijuana.. Patient denies drug use. Patient's renal panel was drawn after second liter not after third liter. Patient's blood sugar came down to 300s after third liter. Patient feels better. Patient's is at bedside. Discussed case with , Discussed results of latest glucose and renal panel. Pt does not appear to be in dka. Pt given 3 liters iv fluids and glucose decreased. Pt given sq insulin. I urged pt to follow up with primary provider tomorrow and be placed back on diabetes medications. Pt denies abdominal pain at sd. Pt comfortable with plan of care. Differential Diagnosis Differential Diagnosis: dka, uti, hyperemesis secondary to marijuana use, dehydration Lab Data 12/01/24 16:11 12/01/24 18:47 Labs: Lab Results 12/01/24 12/01/24 12/01/24 Range/Units 16:11 16:58 18:47 WBC 6.8 (3.8-10.6) Thou/mm3 RBC 5.53 (4.50-5.90) Miln/mm3 Hgb 14.7 (13.5-16.0) g/dL Hct 42.1 (41.0-53.0) % MCV 76 L (80-100) fL MCH 26.6 (25.0-35.0) pg MCHC 34.9 (31.0-37.0) g/dl RDW Std Deviation 34.7 L (35.1-43.9) fL Plt Count 192 (140-440) Thou/mm3 Neut % (Auto) 70 (37-80) % Lymph % (Auto) 24 (10-50) % [place] % (Auto) 6 (0-12) % Eos % (Auto) 1 (0-10) % Baso % (Auto) 0 (0-2.5) % Neut # (Auto) 4.8 (1.8-7.7) Thou/mm3 Lymph # (Auto) 1.6 (1.0-4.8) Thou/mm3 [place] # (Auto) 0.4 (0.0-0.8) Thou/mm3 Eos # (Auto) 0.0 (0.0-0.5) Thou/mm3 Baso # (Auto) 0.0 (0.0-0.2) Thou/mm3 Immature Gran # (Auto) 0.01 H (0.00-0.00) Thou/mm3 Absolute Nucleated RBC 0.00 (0.00-0.00) Thou/mm3 Immature Gran % 0 (0-0) % Nucleated RBC % 0 (0) /100 WBC Sodium 128 L 135 L (136-145) mMol/L Potassium 5.1 4.1 D (3.4-5.1) mMol/L Chloride 92 L 101 (98-107) mMol/L Carbon Dioxide 20.4 19.7 L (20.0-31.0) mMol/L Anion Gap 16 14 (7-16) BUN 15 12 (9-23) mg/dL Creatinine 1.5 H 1.1 (0.6-1.3) mg/dL Estim Creat Clear Calc 75.7 103.2 (>60) mL/min eGFR > 60 > 60 (60 - ) See Note BUN/Creatinine Ratio 10 L 11 L (12-20) Ratio Glucose 770 H* 419 H* D (74-106) mg/dL Calculated Osmolality 294 287 (275-295) Calcium 9.8 8.7 (8.3-10.6) mg/dL Corrected Calcium 9.8 8.7 (8.5-10.1) mg/dL Total Bilirubin 0.4 0.3 (0.3-1.2) mg/dL AST < 10 < 10 (0-34) U/L ALT 11 12 (10-49) U/L Alkaline Phosphatase 222 H 159 H D (46-116) U/L Total Protein 7.0 6.1 (5.7-8.2) gm/dL Albumin 4.5 4.0 D (3.5-5.0) gm/dL Globulin 2.5 2.1 L (2.3-3.5) gm/dL Albumin/Globulin Ratio 1.8 1.9 (1.2-2.2) Lipase 53 (12-53) U/L Beta-Hydroxybutyrate/Acetoacetate 3.8 H (<0.6) mmol/L Ur Collection Type Clean Catch Urine Color Colorless A (Lt Yel-Yel) Urine Clarity Clear (Clear/Hazy) Urine pH 6.0 (5.0-7.0) Ur Specific [place] 1.030 (1.001-1.035) Urine Protein Negative (Neg - Trace) Urine Glucose (UA) 4+ A (Negative) Urine Ketones 2+ A (Negative) Urine Blood Negative (Negative) Urine Nitrite Negative (Negative) Urine Bilirubin Negative (Negative) Urine Urobilinogen (Auto) Negative (0.0-1.0) mg/dL Ur Leukocyte Esterase Negative (Negative) Urine RBC 2 (0-3) /hpf Urine WBC < 1 (0-5) /hpf Ur Squamous Epith Cells < 1 (0-5) /hpf Urine Bacteria None (None) Urine Opiates Screen Negative (Negative) Urine Fentanyl Screen Negative (Negative) Ur Barbiturates Screen Negative (Negative) U Amphetamin/Meth Scrn Negative (Negative) U Benzodiazepines Scrn Negative (Negative) U Cocaine Metab Screen Positive A (Negative) U Marijuana (THC) Screen Positive A (Negative) Ethyl Alcohol < 10.0 (0-10.0) mg/dL Discharge Plan Plan Patient Disposition: HOME (Self Care) Patient condition on transfer: Stable Prescriptions/Referrals Prescriptions/Med Rec: No Action famotidine 40 mg tablet 40 mg PO QDAY Qty: 14 0RF ondansetron 4 mg tablet,disintegrating 4 mg PO Q6H PRN (Reason: nausea and vomiting) Qty: 14 0RF buspirone 5 mg tablet 5 mg PO BID Qty: 60 5RF sertraline 50 mg tablet 50 mg PO QDAY MDD 50 mg Qty: 30 5RF insulin glargine 100 unit/mL (3 mL) insulin pen 15 unit subcut QDAY 30 Days Qty: 15 0RF (DME) pen needle, diabetic 32 gauge x 1/4 needle See Rx Instructions .Route Qty: 100 0RF Rx Instructions: As directed (DME) FreeStyle Ramya 3 Sensor Device See Rx Instructions .Route Qty: 1 0RF Rx Instructions: As directed insulin lispro [Admelog SoloStar U-100 Insulin] 100 unit/mL insulin pen 5 unit subcut TID Qty: 15 0RF Referrals: Radha Verdin MD [Primary Care Provider] - In 1 week Problem List Clinical Impression: Uncontrolled diabetes mellitus, Cocaine use, Marijuana user Patient/Caregiver Discharge Instructions Discharge Activity: activity as tolerated Education Materials: ED Drug Abuse, ED Diet: Diabetes Additional Instructions: Patient needs to call and make an appointment for tomorrow with primary provider. Patient needs to be placed back on diabetes medications. Patient will need to come back to the emergency room if symptoms change or worsen. Print Language: Hebrew Stand Alone Forms: Olamide Award Info., Patient Portal Info Letter PA/DIRECTOR CAREER SERVICES Supervising Physician PA/DIRECTOR CAREER SERVICES Supervising Physician: Kam
[2024-12-01 17:28] LABS: Amphetamine/Methamp Scrn,U Negative (Negative); Barbiturate Screen,Urine Negative (Negative); Benzodiazepines Screen,Urine Negative (Negative); Benzoylecgonine Screen, Ur Positive (Negative); Fentanyl Screen,Urine Negative (Negative); Opiate Screen,Urine Negative (Negative); THC Screen,Urine Positive (Negative)
[2024-12-01 17:28] LABS: Alanine Aminotransferase 11 U/L (10-49); Albumin, Serum 4.5 gm/dL (3.5-5.0); Albumin/Globulin Ratio 1.8 (1.2-2.2); Alcohol, Blood Medical < 10.0 mg/dL (0-10.0); Alkaline Phosphatase 222 U/L (46-116); Anion Gap 16 (7-16); Aspartate Amino Transferase < 10 U/L (0-34); BUN/Creatinine Ratio 10 Ratio (12-20); Bilirubin,Total 0.4 mg/dL (0.3-1.2); Blood Urea Nitrogen 15 mg/dL (9-23); Calcium 9.8 mg/dL (8.3-10.6); Calcium (Corrected) 9.8 mg/dL (8.5-10.1); Carbon Dioxide 20.4 mMol/L (20.0-31.0); Chloride 92 mMol/L (98-107); Creatinine (Component) 1.5 mg/dL (0.6-1.3); Estimated Creatinine Clearance 75.7 mL/min (>60); Globulin 2.5 gm/dL (2.3-3.5); Lipase 53 U/L (12-53); Osmolality,Calculated 294 (275-295); Potassium 5.1 mMol/L (3.4-5.1); Sodium 128 mMol/L (136-145); eGFR > 60 See Note
[2024-12-01 17:29] LABS: Bilirubin,Urine Negative (Negative); Blood,Urine Negative (Negative); Clarity,Urine Clear (Clear/Hazy); Color,Urine Colorless (Lt Yel-Yel); Glucose, Urine 4+ (Negative); Ketones,Urine 2+ (Negative); Leukocyte Esterase,Urine Negative (Negative); Nitrite,Urine Negative (Negative); Protein,Urine Negative (Neg - Trace); RBC,Urine 2 /hpf (0-3); Squamous Epithelial Cell,Urine < 1 /hpf (0-5); Urobilinogen,Urine Negative mg/dL (0.0-1.0); WBC,Urine < 1 /hpf (0-5)
[2024-12-01 17:49] LABS: Glucose 770 mg/dL (74-106)
[2024-12-01 18:08] VITALS: BP 124/78; PULSE 72; RESP 18; TEMP 36.8; O2SAT 98
[2024-12-01 20:31] LABS: Alanine Aminotransferase 12 U/L (10-49); Albumin/Globulin Ratio 1.9 (1.2-2.2); Alkaline Phosphatase 159 U/L (46-116); Anion Gap 14 (7-16); Aspartate Amino Transferase < 10 U/L (0-34); BUN/Creatinine Ratio 11 Ratio (12-20); Bilirubin,Total 0.3 mg/dL (0.3-1.2); Blood Urea Nitrogen 12 mg/dL (9-23); Calcium 8.7 mg/dL (8.3-10.6); Calcium (Corrected) 8.7 mg/dL (8.5-10.1); Carbon Dioxide 19.7 mMol/L (20.0-31.0); Chloride 101 mMol/L (98-107); Creatinine (Component) 1.1 mg/dL (0.6-1.3); Estimated Creatinine Clearance 103.2 mL/min (>60); Globulin 2.1 gm/dL (2.3-3.5); Osmolality,Calculated 287 (275-295); Potassium 4.1 mMol/L (3.4-5.1); Sodium 135 mMol/L (136-145); Total Protein 6.1 gm/dL (5.7-8.2); eGFR > 60 See Note
[2024-12-01 20:35] LABS: Glucose 419 mg/dL (74-106)
[2024-12-01 22:02] VITALS: BP 128/69; PULSE 76; TEMP 36.6; O2SAT 100
[2024-12-01] MEDS: INSULIN HUM REGULAR 1 UNIT/0.01 ML (PER UNIT) 5 UNIT SC (22:26)
== END 2024-12-01 22:44 | disposition home or self-care (01) ==
PROVIDERS: Nurse Practitioner Family; Emergency Provider Emergency Medicine
DX: E11.65 Type 2 diabetes mellitus with hyperglycemia (principal); F14.90 Cocaine use, unspecified, uncomplicated; F12.90 Cannabis use, unspecified, uncomplicated; F32.A Depression, unspecified; Z79.4 Long term (current) use of insulin
CPT/HCPCS: 36415; 80053; 80307; 80320; 81001; 82010; 83690; 85025; 87086; 96360; 96361; 96372; 99284; J1815; J7030; Q0162; G0480

== ENCOUNTER 2024-12-02 13:23 | Outpatient (AMB) | payer MEDICAID, SELFPAY ==
[2024-12-02 13:39] VITALS: BP 100/62; PULSE 81; RESP 19; TEMP 36.8; O2SAT 96; BMI 24.8
--- NOTE | 2024-12-02 13:39 | PD.RESCLINIC ---
Vital Signs 12/02/24 13:39 Height 1.78 m Height Method Stated Weight 78.698 kg Weight Measurement Method Standing Scale BMI 24.8 BP 100/62 Blood Pressure Source Automatic Cuff Blood Pressure Location Left Upper Arm Position Sitting Respiration 19 Pulse 81 Pulse Source Monitor Temp 98.2 F Temp Source Temporal Artery Scan Pulse Oximetry (%) 96 Oxygen Delivery Method Room Air Allergies/Meds Allergies & Medications Allergies No Known Allergies Allergy (Verified 12/02/24 13:49) Medication Reconciliation buspirone 5 mg tablet 5 mg PO BID anxiety #60 tabs 10/30/24 [Rx Confirmed 12/02/24] sertraline 50 mg tablet 50 mg PO QDAY #30 tabs 10/30/24 [Rx Confirmed 12/02/24] famotidine 40 mg tablet 40 mg PO QDAY dyspepsia #14 tabs 11/29/24 [Rx Confirmed 12/02/24] ondansetron 4 mg disintegrating tablet 4 mg PO Q6H PRN nausea and vomiting #14 tabs 11/29/24 [Rx Confirmed 12/02/24] 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 sensor (FreeStyle Ramya 3 Sensor device) #1 ea 12/02/24 [Rx] insulin glargine 100 unit/mL (3 mL) subcutaneous pen 15 unit (0.15 mL) subcut QDAY 1 month #15 mL 12/02/24 [Rx] insulin lispro 100 unit/mL subcutaneous pen (Admelog SoloStar U-100 Insulin lispro) 5 unit (0.05 mL) subcut TID #15 mL 12/02/24 [Rx] pen needle, diabetic 32 gauge x 1/4 #100 ea 12/02/24 [Rx] MA Intake Visit Data Collection New Patient or Established: Established Patient (seen at [facility] within 3 years) Seen by Clinical Staff ONLY (RN/MA): No Pain Present Currently: No Pain scale:: 0 Pain Scale Used: Pavon-Naylor/Numerical Experimental Rocketsled Mechanic Required: No PCP or OBGYN visit in last 3 months: No Hx Now: No Do You Feel Safe at Home: Yes Authorities Contacted: N/A Smoking Status Smoking Status: Never smoker Immunization / Flu Flu Vaccine in the Last 12 Months: No Flu Vaccine Exclusion Criteria: No Exclusion Criteria Past Medical History Past Medical History NEUROLOGIC: Negative Neurological Disorders CARDIAC: Negative Cardiac Disorders or Congestive Heart Failure RESPIRATORY: Negative Chronic Obstructive Pulmonary Disease (COPD) GASTROINTESTINAL: Negative Gastrointestinal Disorders or Hepatitis GENITOURINARY: Negative Genitourinary Disorders or Renal Disease ENDOCRINE: Positive Endocrine Disorders and Diabetes Mellitus Type 2; Negative Diabetes Mellitus Type 1 HEMATOLOGIC: Negative Blood Disorders OTHER HISTORY: Negative Autoimmune Disease, Human Immunodeficiency Virus (HIV), Chicken Pox, Measles, Mumps, Rubella (Serbian Measles), Pertussis, Clostridium Difficile or Cancer Surgical History SURGICAL: Negative Nephrectomy or Joint Replacement Social History SMOKING STATUS: Smoking status: Never smoker SECOND HAND EXPOSURE: second hand exposure: No ALCOHOL: Alcohol Intake: Never HOUSING: Housing: House LIVES WITH: Lives With: Significant Other Patient Portal Questionaires PHQ-9 PHQ-2 Over the last 2 weeks, how often have you been bothered by any of the following problems? 1. Little interest or pleasure in doing things: not at all PHQ-9 8. Moving or speaking so slowly that other people could have noticed? - Or the opposite - being so fidgety or restless that you have been moving around a lot more than usual: not at all Source: Developed by Drs. Karlo Rice, Rosalina Cueva, Rob Gregory and colleagues, with an educational bj from [employer]. Social History Living Situation History Housing: House Tobacco History Smoking Status: Never smoker tobacco type: e-cigarettes Second Hand Smoke Exposure: No Alcohol History Alcohol Intake: Never Domestic Abuse History Do You Feel Safe at Home: Yes Review of Systems Report any current symptoms Only answer those that you have currently: Past Medical History Past Medical History Have you ever been diagnosed with any of the following: Cardiology Problems Congestive Heart Failure: No Respiratory Problems Chronic Obstructive Pulmonary Disease (COPD): No Stomache/Intestinal Problems Hepatitis: No Genital/Urinary Problems Renal Disease: No Endocrine Problems Diabetes Mellitus Type 1: No Diabetes Mellitus Type 2: Yes Other Problems Autoimmune Disease: No Human Immunodeficiency Virus (HIV): No Chicken Pox: No Measles: No Mumps: No Rubella (Serbian Measles): No Pertussis: No Clostridium Difficile: No Cancer: No History of Present Illness HPI Narrative Mr. Rodgers is a 29 y.o male with past medical history of anxiety/depression and remote history of diabetes mellitus presented to the [facility] as a hospital follow up from the ER yesterday, 12/01/24. Patent presented with n/v and abdominal pain. Per at bedside, patient has been noncompliant with his diet, has been eating a lot of candies and sodas. Patient did come to the [facility] on 11/29/24 with similar symptoms but sent home with Famotidine and Ondansetron, but symptoms worsened and decided to go the ED. In the ED, patient presented with a BG of 717, BHB 3.8, ketones in urines, with a AG of 16, with a HCO3- of 20. Patient's glucose improved after being given IV Insulin 5units regular and 3L bolus of NS. Patient's fingerstick BG here at the office was 516 and continues to feel nauseous and is thirsty. Patient states his abdominal pain has decreased. Patient will be sent home with Insulin 15units basal bolus, 5units of meal time insulin scheduled, and with instructions to titrate his basal bolus by 1 unit if BG is > 150 in the AM. Patient also encouraged to avoid sugars and carbohydrates and drink lots of fluids, and to record his BS levels on a glucose log that was provided to patient. Patient also sent with labs (A1c and Urine microalbumin/Cr) to have done for next visit, with Dr. Hills, 12/06/24. Review of Systems Review of Systems Systems Reviewed: All systems reviewed, normal except as documented Objective/Exam Narrative Physical exam: GENERAL: Mild acute distress, AAO x4, cooperative. at bedside. HEENT: Head AT/ NC. Dry mucous membranes. PERRL. NECK: Supple, no lymphadenopathy, no carotid bruits. CARDIOVASCULAR: RRR. Normal S1/S2, No m/r/g. No pitting edema of bilateral LEs. RESPIRATORY: CTAB. No wheezing, rhonchi, crackles. GASTROINTESTINAL: Abdomen soft, non tender no palpable masses. Bowel sounds present in all 4 quadrants. MUSCULOSKELETAL:? No cyanosis or edema, no visible joint swelling. NEUROLOGICAL: CN II-XII grossly intact. No focal deficits. Sensation intact, symmetric. PSYCHIATRIC: Awake and alert, not agitated, normal mood and affect. INTEGUMENTARY: No obvious rashes, no jaundice, normal turgor. Assessment & Plan Diagnosis / Problem List (1) Diabetes mellitus, insulin dependent (IDDM), uncontrolled: Status: Acute Assessment & Plan: Patient presented with a BG of 516 at the [facility] office. Patient's BG yesterday in the ED was 717 and improved to 400+ after 3L bolus NS and 5units IV Insulin regular Last A1c in 08/11 was 6.1%, back in 2023 A1c was 14% Noncompliance in diet Plan: -Ordered A1c -Ordered Urine Microalbumin/Cr ratio -F/u with Dr. Hills at 9:30 on 12/06/24 -Record daily glucose levels in log -Avoid carbs/sugars -Insulin 15u Lantus HS -Lispro 5u TID prior to meals -Increase basal bolus by 1 if AM BG > 150 -Continue with Zofran PRN if nauseous Additional Assessment Internal Medicine Attending Note: Case discussed with and agree with note and management plan of Resident Physician as per Resident's Note above. Issues of concern for present visit are as follows: Follow-up visit. Patient recently seen in emergency department, had blood glucose reading of 717. Patient was bolused with normal saline and given 5 units of regular insulin IV. Blood glucose did improve to the 400s, patient was not admitted to the hospital. Note made though of an anion gap of 16. Presents today without complaints other than some polyuria and polydipsia. Previous hemoglobin A1c was at 6.1 in July 2024. Prior to that though, hemoglobin A1c was 14. Patient has not been practicing diet and exercise compliance and has been on no diabetic medications. We will start the patient on Lantus 15 units at bedtime along with mealtime lispro insulin 5 units daily. Patient instructed on how to titrate Lantus. Follow-up in 4 to 5 days to reassess blood glucose readings. Haroon Pro MD Additional Plan Patient's care and plan discussed with my attending, Dr. Inocencia Ospina, PGY-2 Physician Billing Established Patient Established Patient: E/M Level 3-CPT 84439 Office Procedures [facility] Level of Care Nursing/Assessment Patient Status: Established Patient Nursing Assessment/Reassessment: Medication Reconciliation, Update PMH in EMR and Vital Signs Coordination of Care: Complex Care and Chronic Disease 1-5, Consent,records obtained, informed consent, Education Simp Pt/Fam and Staff clarify orders Miscellaneous Interventions: Complete POC testing Established Patient Charge Established Patient Point Assignment: 95 Established Patient Point Charge: Level 3 (80-115)
== END 2024-12-02 14:40 | disposition home or self-care (01) ==
LOC: HODAHC 13:23
PROVIDERS: Supervising Provider Internal Medicine; Visit Provider Student in an Organized Health Care Education/Training Program
DX: E11.9 Type 2 diabetes mellitus without complications (principal); R35.89 Other polyuria; R63.1 Polydipsia; Z79.4 Long term (current) use of insulin; Z91.119 Patient's noncompliance with dietary regimen due to unspecified reason
CPT/HCPCS: 99213; G0463

== ENCOUNTER 2025-01-06 18:27 | Inpatient (IN) | payer MEDICAID, SELFPAY ==
--- NOTE | 2025-01-06 19:27 | EKG_ITS ---
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
--- NOTE | 2025-01-06 19:28 | PD.EDRME ---
Rapid Medical Screening Exam RME Arrival date/time: 01/06/25 18:27 29 yo m present to ED for c/o of feeling sick, shaky and has not taken insulin today I have greeted and performed a focused initial assessment of this patient. A comprehensive ED assessment and evaluation of the patient, analysis of all test results, and completion of the medical decision making process will be conducted by additional ED providers. Chief Complaint: General Adult/Misc Complain Time Seen by Provider: 01/06/25 19:20
[2025-01-06 19:31] VITALS: BP 151/88; PULSE 128; RESP 26; TEMP 36.4; O2SAT 100
[2025-01-06 19:59] LABS: Lactate (Lactic Acid) 2.9 mMol/L (0.4-2.0)
[2025-01-06 20:03] LABS: Basophils # (Auto) 0.1 Thou/mm3 (0.0-0.2); Basophils % (Auto) 0 % (0-2.5); Eosinophils % (Auto) 0 % (0-10); Hemoglobin 16.1 g/dL (13.5-16.0); Immature Granulocytes % (Auto) 1 % (0-0); Lymphocytes # (Auto) 1.2 Thou/mm3 (1.0-4.8); Lymphocytes % (Auto) 7 % (10-50); Mean Corpuscular HGB Conc 33.5 g/dl (31.0-37.0); Mean Corpuscular Hemoglobin 26.9 pg (25.0-35.0); Mean Corpuscular Volume 80 fL (80-100); Monocytes % (Auto) 6 % (0-12); Neutrophils # (Auto) 15.9 Thou/mm3 (1.8-7.7); Neutrophils % (Auto) 87 % (37-80); Nucleated Red Blood Cell % 0 /100 WBC (0); Platelet Count 433 Thou/mm3 (140-440); RDW Standard Deviation 43.4 fL (35.1-43.9); Red Blood Count 5.98 Miln/mm3 (4.50-5.90); White Blood Count 18.3 Thou/mm3 (3.8-10.6)
[2025-01-06 20:19] LABS: Beta Hydroxybutyrate 5.1 mmol/L (<0.6)
[2025-01-06 21:23] VITALS: BP 150/99; PULSE 117; RESP 32; TEMP 36.8
[2025-01-06] MEDS: SODIUM CHLORIDE 0.9% 1000 ML 1,000 ML 999 ML IV (21:30)
[2025-01-06 21:33] VITALS: BMI 20.7
[2025-01-06 21:36] LABS: Alanine Aminotransferase 15 U/L (10-49); Albumin, Serum 5.9 gm/dL (3.5-5.0); Albumin/Globulin Ratio 1.8 (1.2-2.2); Alkaline Phosphatase 105 U/L (46-116); Anion Gap 18 (7-16); Aspartate Amino Transferase 18 U/L (0-34); BUN/Creatinine Ratio 11 Ratio (12-20); Bilirubin,Total 0.5 mg/dL (0.3-1.2); Blood Urea Nitrogen 24 mg/dL (9-23); Calcium 9.7 mg/dL (8.3-10.6); Calcium (Corrected) 9.7 mg/dL (8.5-10.1); Chloride 99 mMol/L (98-107); Creatinine (Component) 2.2 mg/dL (0.6-1.3); Estimated Creatinine Clearance 46.5 mL/min (>60); Globulin 3.2 gm/dL (2.3-3.5); Lipase 376 U/L (12-53); Magnesium 2.2 mg/dL (1.6-2.6); Osmolality,Calculated 292 (275-295); Sodium 127 mMol/L (136-145); Total Protein 9.1 gm/dL (5.7-8.2); Troponin I < 0.020 ng/mL (0.0-0.045); eGFR 41 See Note
--- NOTE | 2025-01-06 21:36 | EDNOTE_ITS ---
ED Arrhythmia Palp. RME/HPI General Chief Complaint: General Adult/Misc Complain Stated Complaint: SHAKING, HEART IS RACING, SINCE 3PM Time Seen by Provider: 01/06/25 19:20 Arrival date/time: 01/06/25 18:27 RME / HPI RME / HPI narrative: 01/06/25 18:27 29 yo m present to ED for c/o of feeling sick, shaky and has not taken insulin today I have greeted and performed a focused initial assessment of this patient. A comprehensive ED assessment and evaluation of the patient, analysis of all test results, and completion of the medical decision making process will be conducted by additional ED providers. ------- Dr. Humphrey?s Main ED Evaluation: 29yo male with a history of DM presents to the ED for complaints of N/V and palpitations. Patient states he's had persistent N/V, diffuse abdominal pain, and palpitations today. He admits to using cocaine frequently. Patient denies any fever, chills, back pain, UTI symptoms or any other associated symptoms. No known allergies. Related Data Previous Rx's ?Medication ?Instructions ?Recorded buspirone 5 mg tablet 5 mg PO BID anxiety #60 tabs 10/30/24 sertraline 50 mg tablet 50 mg PO QDAY #30 tabs 10/30 famotidine 40 mg tablet 40 mg PO QDAY dyspepsia #14 tabs 11/29/24 ondansetron 4 mg disintegrating 4 mg PO Q6H PRN nausea and 11/29/24 tablet vomiting #14 tabs 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 sensor (FreeStyle #1 ea 12/02/24 Ramya 3 Sensor device) insulin lispro 100 unit/mL 5 unit (0.05 mL) subcut TID #15 mL 12/02/24 subcutaneous pen (Admelog SoloStar U-100 Insulin lispro) pen needle, diabetic 32 gauge x #100 ea 12/02/24 1/ Allergies Allergy/AdvReac Type Severity Reaction Status Date / Time No Known Allergies Allergy Verified 01/06/25 18:31 Review of Systems Review of Systems Systems Reviewed: All systems reviewed, normal except as documented Past Medical History Past Medical History NEUROLOGIC: Negative Neurological Disorders CARDIAC: Negative Cardiac Disorders or Congestive Heart Failure RESPIRATORY: Negative Chronic Obstructive Pulmonary Disease (COPD) GASTROINTESTINAL: Negative Gastrointestinal Disorders or Hepatitis GENITOURINARY: Negative Genitourinary Disorders or Renal Disease MUSCULOSKELETAL: Negative Musculoskeletal Disorders ENDOCRINE: Positive Endocrine Disorders and Diabetes Mellitus Type 2; Negative Diabetes Mellitus Type 1 HEMATOLOGIC: Negative Blood Disorders OTHER HISTORY: Negative Autoimmune Disease, Human Immunodeficiency Virus (HIV), Chicken Pox, Measles, Mumps, Rubella (Maltese Measles), Pertussis, Clostridium Difficile or Cancer Surgical History SURGICAL: Negative Nephrectomy or Joint Replacement Social History SMOKING STATUS: Former smoker SECOND HAND EXPOSURE: No ED Exam Narrative Physical exam: GENERAL APPEARANCE: alert and oriented x 4, cachectic, appears dehydrated, no acute distress VITALS: All vitals were reviewed and the pulse ox is 100% on room air, which is normal according to my interpretation. HEENT: Normocephalic, atraumatic; pupils equal, round, reactive to light; EOMI; mucous membranes pink, moist; oropharynx clear NECK: Supple LUNGS: CTABL; no wheezes, no rales, no rhonchi; tachypneic HEART: Tachycardic, regular rhythm; normal S1, S2; no murmurs ABDOMEN: non distended; normal BS; soft, no tenderness, no guarding, no rebound; no masses, no organomegaly, no hernia BACK: no CVA tenderness EXTREMITIES: atraumatic; no edema NEUROLOGIC: awake; alert and oriented x4; cranial nerves II-XII grossly intact; no focal sensory or motor deficits PSYCHIATRIC: appropriate mood and affect SKIN: warm, dry, normal color; no rashes Course Course Course Narrative: CXR is ordered for determining the etiology of palpitations. Quality Measures Possible source: pulmonary and GI tract/intra-abdominal Blood cultures ordered: yes Antibiotic ordered: Yes Pertinent labs: 01/06/25 19:41 Lactic Acid 2.9 H mMol/L (0.4-2.0) sepsis and none Orders Category Date Time Status Blood glucose [Bedside Blood Glucose] NOW Care 01/06/25 19:27 Active EKG (ED ONLY) *Do not use* NOW Care 01/06/25 19:27 Completed Insert IV STAT Care 01/06/25 19:27 Active EKG (ED Only) Stat Exams 01/06/25 19:27 Draft Beta Hydroxybutyrate Stat Lab 01/06/25 19:41 Results CBC Stat Lab 01/06/25 19:41 Completed CMP [Comprehensive Metabolic Panel] Stat Lab 01/06/25 19:41 Results Lactic Acid [Lactate (Lactic Acid)] Stat Lab 01/06/25 19:41 Results Lipase Stat Lab 01/06/25 19:41 Results Mag [Magnesium] Stat Lab 01/06/25 19:41 Results Troponin I Stat Lab 01/06/25 19:41 Results Sodium Chloride 0.9% 1000 ml [Ns] 1,000 ml Med 01/06/25 19:27 Discontinued IV 999 mls/hr Vital Signs Vital signs: Vital Signs Temperature 97.6 F 01/06/25 19:31 Pulse Rate 128 H 01/06/25 19:31 Respiratory Rate 26 H 01/06/25 19:31 Blood Pressure 151/88 H 01/06/25 19:31 Pulse Oximetry (%) 100 01/06/25 19:31 Oxygen Delivery Method Room Air 01/06/25 19:31 Arrhythmia/Palpitations MDM Narrative MDM Narrative:: Scribe Attestation: 01/06/25 - Mikayla Grossman am scribing for and in the presence of Dr. Humphrey. 2116: Sepsis alert initiated. Orders made at this time are congruent with ED Adult Sepsis Order List. Re-evaluation is to be completed. NS IVF was ordered at 1926 by the previous provider and has not been given yet due to waiting bed placement. 2129: NS IVF started. 2216: Spoke with the mineral ore processing labourer, who states the patient's blood sample for the CMP hemolyzed. I asked them to result the CMP and I will order another CMP. 5: Discussed case with Dr. Bailey from Hospitalist service regarding admission. Discussed patients ED course, exam findings, labs, and radiology results. The Hospitalist agrees to accept the patient for admission. Patient is still receiving IV fluids at the time of admission. Patient data External records reviewed:: [facility] previous records (Per chart review, patient was seen here on 12/01/24 for cocaine use.) Clinical information provided by:: patient Social determinants that could affect healthcare access:: substance use Patient has the following chronic illnesses:: DM How is presenting disease/condition affected by chronic disease/condition?: exacerbated by Evaluation data The following diagnostics were reviewed and interpreted by me:: lab results, radiology exam(s) and EKG tracing(s) Lab and/or radiology exams considered but not ordered:: none Interpretation Summary: WBC count is elevated at 18.3, Lactic Acid is elevated at 2.9, Beta Hydroxybutyrate is elevated at 5.1, VBG shows a pH of 6.93 and low pCO2 of 22, Sodium is low at 127, Potassium is elevated at 6.7, Anion is elevated at 18, Creatinine is elevated at 2.2, Glucose is elevated at 691, Lactic Acid is el evated at 2.9, Troponin is normal, according to my interpretation. EKG done at 1932, sinus tachycardia, rate of 1930, normal axis, no ectopy, peaked T-waves in V3-V6, no STEMI, according to my interpretation. --------- [facility] Report Signed Patient: MICHELLE TREJO [facility]. Record#: [id number] Birthdate: 1995 Age/Sex: 29 / M Location: [facility] Attending Dr: Ordering Physician: Micah Humphrey MD Date of Service: 01/06/25 Procedure(s): XR chest 1V portable Accession Number(s): [id number] cc: Santiago Mcgovern MD; NO PRIMARY/FAMILY,PHYSICIAN; Micah Humphrey MD~ Examination: AP chest single view Technique: AP portable upright chest single view Exam date and time: January 06, 2025, 2155 hrs. Comparison March 02, 2023 Indications: Patient feels sick and shaky today, has not taken insulin Also coughing today Findings: Normal heart size. Lungs are clear. Intact osseous structures. Impression: No active disease Dictated By: Santiago Mcgovern MD Signed By: <Electronically signed by Santiago Mcgovern MD in OV> 01/06/25 2204 Medications / Prescriptions Medications or Prescriptions considered but not ordered:: none Medication administrations:: Medication Administration History Discontinued Medications Sodium Chloride (Ns) 1,000 mls @ 999 mls/hr IV .Q1H1M ONE Stop: 01/06/25 20:27 Last Admin: 01/06/25 21:30 Dose: 999 mls/hr Documented By: EF see above Consultations Consultation(s) initiated? (list below): Yes Diagnosis Differential diagnosis arrhythmia/palpitations: other (DKA, hyperosmolar state, sepsis, cocaine overdose, dehydration) Most likely diagnosis given after review of the tests above:: see clinical impression below Admission Indicated Admission indicated?: indicated Admission Request Was there a request for admission?: Yes Admission Attestation Admission request attestation: Discussed case with [] from Hospitalist service regarding admission. Discussed patients ED course, exam findings, labs, and radiology results. The Hospitalist [agrees,declines] to accept the patient for admission. Disposition Plan Disposition Plan: Admit Critical Care Time Critical Care Time Critical Care Time: Yes Total Critical Care Time (min.): 45 Attestation: The high probability of sudden, clinically significant deterioration in the patient?s condition required the highest level of my preparedness to intervene urgently. The services I provided to this patient were to treat and/or prevent clinically significant deterioration. Services included the following: chart data review, reviewing nursing notes and/or old charts, documentation time, corporate health consultant collaboration regarding findings and treatment options, medication orders and management, direct patient care, vital sign assessments and ordering, interpreting and reviewing diagnostic studies and lab tests. Aggregate critical care time includes only time during which I was engaged in work directly related to the patient?s care, as described above, whether at bedside or elsewhere in the Emergency Department. It did not include time spent performing other reported procedures or the services of residents, students, nurses or physician assistants. Discharge Plan Plan Patient Disposition: Admit Acute Care w/in Hospital Prescriptions/Referrals Prescriptions/Med Rec: No Action famotidine 40 mg tablet 40 mg PO QDAY Qty: 14 0RF ondansetron 4 mg tablet,disintegrating 4 mg PO Q6H PRN (Reason: nausea and vomiting) Qty: 14 0RF buspirone 5 mg tablet 5 mg PO BID Qty: 60 5RF sertraline 50 mg tablet 50 mg PO QDAY MDD 50 mg Qty: 30 5RF (DME) pen needle, diabetic 32 gauge x 1/4 needle See Rx Instructions .Route Qty: 100 0RF Rx Instructions: As directed (DME) FreeStyle Ramya 3 Sensor Device See Rx Instructions .Route Qty: 1 0RF Rx Instructions: As directed insulin lispro [Admelog SoloStar U-100 Insulin] 100 unit/mL insulin pen 5 unit subcut TID Qty: 15 0RF Referrals: No Primary/Family,Physician [Primary Care Provider] - In 1 week Problem List Clinical Impression: DKA (diabetic ketoacidosis), Cocaine intoxication Patient/Caregiver Discharge Instructions Print Language: Uzbek Stand Alone Forms: [employer] Award Info., Patient Portal Info Letter
[2025-01-06 21:48] VITALS: PULSE 116; PULSE 117; RESP 100; RESP 26
[2025-01-06 22:10] LABS: Base Excess, Venous -27 (-3-3); O2 Saturation, Venous 82 % (96-97); PCO2, Venous 22 mmHg (36-56); PO2, Venous 53 mmHg (15-58); pH, Venous 6.93 (7.33-7.66)
[2025-01-06 22:18] LABS: Carbon Dioxide < 10.0 mMol/L (20.0-31.0); Potassium 6.7 mMol/L (3.4-5.1)
[2025-01-06 22:20] LABS: Glucose 691 mg/dL (74-106)
[2025-01-06 22:35] LABS: Collection Type, Urine Clean Catch
[2025-01-06 22:35] LABS: Partial Thromboplastin Time 33.1 Seconds (22.0-36.0); Prothrombin Time 11.4 Seconds (9.0-12.2)
[2025-01-06] MEDS: RINGERS LACTATED 1000 ML 1,000 ML 999 ML IV (22:55)
[2025-01-06 22:56] LABS: Reflex Lactate? Y
[2025-01-06] MEDS: INSULIN REG 100 UNITS/100 ML 100 UNIT/100 ML BAG 6.573 UNIT IV (22:56)
[2025-01-06 23:11] LABS: Base Excess -26 (-3-3); HCO3 2 mEq/L (20-26); Inspired Oxygen, FIO2 21 %; O2 Saturation 98 % (91-98); PCO2 9 mmHg (32.0-48.0); PO2 139 mmHg (83-108)
--- NOTE | 2025-01-06 23:11 | PD.RESHP ---
Documentation for date of: 01/06/25 [facility] History of Present Illness History of present illness: Patient is a 29 year old male with PMH of Type 1 DM who presents to the ER for feeling sick and shaky. He endorses headache, nonbloody vomiting, palpitations, stomach pain. Patient was on a 3 day cocaine binge. He did not take his insulin today. He got into an argument with his partner and took an unknown amount of pills of setraline, famotidine, and ondansetron. He denies bloody vomit, diarrhea. He denies visual hallucinations, thoughts of hurting himself or others. Allergies: NKDA Meds: Insulin Glargine 15 Qday + Lispro 5 TIDWM, famotidine, ondansetron, setraline SH: denies alcohol use. Endorses cocaine use and marijuana, vape. In the ER, vitals significant for hypertension, tachycardia and tachypnea. Sepsis alert was called. Labs show leukocytosis, hyponatremia, hyperkalemic at 6.7 and AGMA with CO2 < 10 and hyperglycemic at 691. However, ER was notified that this sample was hemolyzed so a repeat is pending. He is hyperglycemic at 691 with a BHB of 5.1. Lactic acid 2.9. He has an elevated lipase at 376. VBG pH at 6.91 and CO2 22. CXR negative. EKG shows sinus tachycardia with QTc at 431. Patient received 2L of IVF and was started on insulin drip. I called poison control regarding the possible overdose of setraline with ondansetron. Reviewed vitals and labs. They recommend checking aspirin and salicylate level, and given QTc is normal likely symptoms related to cocaine intoxication and DKA. Review of Systems Review of Systems Systems Reviewed: All systems reviewed, normal except as documented Exam Vital Signs Temp Pulse Resp BP Pulse Ox O2 Del Method 98.2 F 116 H 26 H 150/99 H 100 Room Air 01/06/25 21:23 01/06/25 21:48 01/06/25 21:48 01/06/25 21:23 01/06/25 19:31 01/06/25 19:31 Narrative Exam Constitutional: Acute distress, tremulous, jaw tremor HEENT: NCAT. Vision grossly intact. Mucous membranes dry. Right eye droop Respiratory: CTAB bilaterally. Tachypneic. Cardiac: Tachycardic. Abdomen: Soft, non-distended, non-tender. No guarding, no rebound. MSK: No B/L LE edema. Skin: Warm, dry, intact. No obvious lesions. Neuro: Motor and sensation grossly intact. Orientated to name, place, date, situation but lethargic. Answering questions appropriately. Results: Labs 01/06/25 19:41 01/06/25 21:46 Labs: Short CBC 01/06/25 Range/Units 19:41 WBC 18.3 H (3.8-10.6) Thou/mm3 Hgb 16.1 H (13.5-16.0) g/dL Hct 48.0 (41.0-53.0) % Plt Count 433 D (140-440) Thou/mm3 BMP 01/06/25 19:41 Sodium 127 L Potassium 6.7 H* Chloride 99 Carbon Dioxide < 10.0 L* BUN 24 H Creatinine 2.2 H Glucose 691 H* Calcium 9.7 Cardiac Enzymes 01/06/25 Range/Units 19:41 Troponin I < 0.020 (0.0-0.045) ng/mL Liver Function 01/06/25 01/06/25 Range/Units 19:41 21:46 Total Bilirubin 0.5 Cancelled (0.3-1.2) mg/dL AST 18 Cancelled (0-34) U/L ALT 15 Cancelled (10-49) U/L Alkaline Phosphatase 105 Cancelled (46-116) U/L Albumin 5.9 H Cancelled (3.5-5.0) gm/dL ABG Interpretation ABG results: 01/06/25 21:46 VBG pH 6.93 L VBG pCO2 22 L VBG pO2 53 VBG Base Excess -27 L Quality Measures Quality Measures sepsis Current suspected stage: sepsis Possible source: pulmonary and GI tract/intra-abdominal Blood cultures ordered: yes Antibiotic ordered: No and none Medications Home Medications and Allergies Allergies Allergy/AdvReac Type Severity Reaction Status Date / Time No Known Allergies Allergy Verified 01/06/25 18:31 Visit Medications Acetaminophen (Acetaminophen 325 Mg Tablet) 650 mg PO Q6H PRN PRN Reason: Fever >101.5 Stop: 02/05/25 22:50 Calcium Gluconate (Calcium Gluconate 10% Inj 1 Gm/10 Ml Vial) 1 gm IV X1 ONE Stop: 01/06/25 22:56 Dextrose (Dextrose 50%-Water Inj 50 Ml Syringe) 25 ml IV [id number] PRN PRN Reason: Blood Sugar - Low Heparin Sodium (Porcine) (Heparin Sod Inj 5000 Unit/Ml Vial) 5,000 unit SC Q8HR GRIFFIN Stop: 01/21/25 05:59 Insulin Human Regular (Myxredlin) 100 unit in 100 mls @ 6.573 mls/hr IV .[id number] PRN; Protocol PRN Reason: PER PROTOCOL Stop: 02/05/25 22:18 Last Admin: 01/06/25 22:56 Dose: 0.1 unit/kg/hr, 6.573 mls/hr Lactated Ringer's (Lactated Ringers) 1,000 mls @ 999 mls/hr IV .Q1H1M ONE Stop: 01/06/25 23:43 Last Admin: 01/06/25 22:55 Dose: 999 mls/hr Potassium Chloride (Kcl Ivpb) 10 meq in 100 mls @ 100 mls/hr IV .Q1H PRN PRN Reason: IF POTASSIUM LESS THAN 3.3 Stop: 02/05/25 22:52 Magnesium Sulfate (Magnesium Sulfate Ivpb) 2 gm in 50 mls @ 25 mls/hr IV .Q2H PRN PRN Reason: PER DKA PROTOCOL Stop: 02/05/25 22:52 Dextrose/Lactated Ringer's (D5-Lr) 1,000 mls @ 250 mls/hr IV .Q4H PRN PRN Reason: PER PROTOCOL Stop: 02/05/25 22:52 Lactated Ringer's (Lactated Ringers) 1,000 mls @ 250 mls/hr IV .Q4H PRN PRN Reason: PER PROTOCOL Stop: 01/07/25 22:52 Potassium Chloride 20 meq/ (Lactated Ringer's) 1,010 mls @ 250 mls/hr IV .Q4H3M PRN PRN Reason: K LEVEL 3.3 TO 5.3mM/L Stop: 02/05/25 22:52 Potassium Chloride 40 meq/ (Lactated Ringer's) 1,020 mls @ 250 mls/hr IV .Q4H5M PRN PRN Reason: K LEVEL < 3.3 mM/L Stop: 02/05/25 22:52 Potassium Chloride 40 meq/ (Dextrose/Lactated Ringer's) 1,020 mls @ 250 mls/hr IV .Q4H5M PRN PRN Reason: K LEVEL < 3.3mM/L Stop: 02/05/25 22:52 Potassium Cl/Dextrose/Lact Ringer's (Kcl 20 Meq/L In D5-Lr) 20 meq in 1,000 mls @ 250 mls/hr IV .Q4H PRN PRN Reason: K LEVEL 3.3 TO 5.3 mM/L Stop: 02/05/25 22:52 Potassium Chloride (Kcl Ivpb) 10 meq in 100 mls @ 50 mls/hr IV PRN PRN PRN Reason: K LEVEL 3.3 to 5.3 & BG > 200 Stop: 02/05/25 22:52 Potassium Phosphate (Pot Phos 15 Mmol In Ns 250 Ml) 15 mmol in 250 mls @ 62.5 mls/hr IV PRN PRN PRN Reason: Phosphate <= 1mg/dL Stop: 02/05/25 22:52 Sodium Phosphate 15 mmol/ (Sodium Chloride) 255 mls @ 62.5 mls/hr IV .Q4H5M PRN PRN Reason: Phosphate <= 1mg/dL and K> than 5.3 Stop: 02/05/25 22:52 Sodium Bicarbonate (Sodium Bicarb Inj 8.4% Syr 50 Ml Syringe) 50 ml IV PRN PRN PRN Reason: For ph <= to 7.0 Stop: 02/05/25 22:52 Discontinued Medications Sodium Chloride (Ns) 1,000 mls @ 999 mls/hr IV .Q1H1M ONE Stop: 01/06/25 20:27 Last Admin: 01/06/25 21:30 Dose: 999 mls/hr Sodium Chloride (Ns) 1,000 mls @ 999 mls/hr IV .Q1H1M ONE Stop: 01/06/25 23:19 Assessment & Plan Plan Patient is a 29 year old male with PMH of DM who is admitted to 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 QTc within normal range, will continue to monitor - Avoid beta blockers due to cocaine intoxication - Follow up acetaminophen level, salicylic level per reccs - Hold home setraline CARDIOVASCULAR Tachycardia secondary to DKA RESPIRATORY Tachypnea secondary to AGMA RENAL #ERIC #Severe AGMA secondary to DKA, lactic acidosis - IVF - Avoid nephrotoxins - Caution bicarb in the setting of hyperkalemia #Hyperkalemia - Calcium gluconate - Patient on insulin drip - Held of albuterol inhaler in the setting of tachycardia GI #Abdominal pain with elevated lipase - CT abdomen/pelvis to rule out pancreatitis - Continue IVF ENDO #DM1 and diabetic ketoacidosis, A1c > 14 Likely due to non-compliance and drug intoxication; less likely infection or WA - Insulin ggt per protocol, replete electrolytes - NPO HEME Leukocytosis, likely hemoconcentrated ID SIRS positive Sepsis alert called due to tachycardia, leukocytosis and ERIC as end-organ damage - Follow up blood culture, urine culture - UA pending Health Maintenance Disposition: Admit to ICU for DKA Diet and fluids: NPO, IVF DVT prophylaxis: heparin GI prophylaxis: none Lines: PIV CODE STATUS: FULL I have reviewed and discussed the patient's care with my attending, Dr. Leo Jones MD PGY-3 Attending Provider Attestation/Addendum I have examined the patient, reviewed labs and imaging findings, discussed the case with the resident(s), and reviewed entered orders. I agree with the plan of care as outlined in this note, with these additional summaries/recommendations: Patient is a 29-year-old male with a medical history of insulin-dependent diabetes mellitus type 2, anxiety, and depression who presents to [facility] emergency department on 01/06/2025 with chief complaints of nausea/vomiting, palpitations, and tremors. Patient and patient's girlfriend seen at bedside. Per patient's girlfriend he has been on a cocaine ?paulino? for the last 3 days. Yesterday patient also took approximately 30 pills at 1 time from his medication bottles of Zofran and sertraline. Jaw tremor and shivering present. No spontaneous clonus or hyperreflexia. Possible symptoms are related to severe DKA vs cocaine intoxication vs serotonin syndrome. Poison control contacted, please see residents note. We will discontinue all serotonergic agents and provide oxygen. If patient's symptoms worsen then we will give IV lorazepam. Patient and girlfriend both deny that the patient was trying to commit suicide. Urine toxicology positive for cocaine and THC. Consult licensed master social worker for resources. Patient also diagnosed with severe DKA. Blood sugar 691, BHB 5.1 and AGMA present. Order insulin regular 0.1U/KG IV x 1. Then start insulin drip and DKA protocol. Isotonic fluids with NS or LR bolus 1 L/an hour until euvolemic. Galvan catheter for high urine output monitoring. Monitor glucose every hour to titrate insulin. Lab monitoring with q2-4h BMP, phosphorus, and VBG. pH 6.9 and we will consider giving bicarb with repeat level. Maintenance fluids 200 mL/h. Changed to D5 1/2 NS when glucose less than 250. If potassium less than 3.5 aggressively replete and hold insulin until potassium greater than 4. Replete phosphorus with K-Phos 20-40 mill email if Phos severely low less than 1. When normalized anion gap and low stable insulin requirement for 4 hours then we will calculate/extrapolate 24-hour insulin requirement and use 75-80% of that split between basal and bolus dosing. Patient also diagnosed with severe anion gap metabolic acidosis secondary to DKA. We will treat underlying cause and give bicarb if needed. Lipase 376 and order abdominal imaging to rule out pancreatitis. Acute kidney injury present on chemistry panel. Creatinine 2.2 and BUN 24. Most likely secondary to prerenal azotemia in the setting of DKA. Continue IV fluids. Avoid nephrotoxic agents and renally dose medications. Hyperkalemia present and patient was given temporizing measures plus calcium gluconate in the ED. Given patient is going to be started on insulin drip we will avoid giving Kayexalate for now although we will reevaluate based on labs. Unclear if patient is a type I or type II diabetic at this time. Last A1c on file 12/29/2024 14.2%. Leukocytosis present 18.3 although most likely reactive and procalcitonin negative. No need for antibiotics at this time. Hyponatremia present and patient is euvolemic. Most likely secondary to extrarenal losses. Proceed with fluids and monitor for improvement. Patient is critically ill and will be admitted to the ICU for close monitoring and management. Patient updated on the plan and in agreement. All questions answered to satisfaction. Please see residents note for additional details and management. Dr. Leo MD Total critical care time: Approximately 36 minutes Due to a high probability of clinically significant, life threatening deterioration, the patient required my highest level of preparedness to intervene emergently and I personally spent this critical care time directly and personally managing the patient. This critical care time included obtaining a history; examining the patient; pulse oximetry; ordering and review of studies; arranging urgent treatment with development of a management plan; evaluation of patient's response to treatment; frequent reassessment; and, discussions with other providers.
[2025-01-06 23:14] LABS: Anion Gap 18 (7-16); BUN/Creatinine Ratio 12 Ratio (12-20); Blood Urea Nitrogen 26 mg/dL (9-23); Chloride 101 mMol/L (98-107); Creatinine (Component) 2.2 mg/dL (0.6-1.3); Estimated Creatinine Clearance 46.5 mL/min (>60); Osmolality,Calculated 296 (275-295); Sodium 129 mMol/L (136-145); eGFR 41 See Note
--- NOTE | 2025-01-06 23:16 | XR_ITS ---
Examination: CT abdomen and pelvis without contrast. Coronal 3-D reconstructions. Sagittal 2-D reconstructions. Date and time of exam:January 07, 2025 at 0124 hrs. Indications: Epigastric pain beginning 3:00 PM yesterday, tachycardia CTDI: vol (mGy): 11.18 DLP: (mGycm): 655 Technique: Axial images of the abdomen have been obtained, 3 mm slice thickness Intravenous contrast material has not been administered. Low dose protocols were performed. One or more of the following dose reduction techniques were used; automated exposure control, adjustment of the mA and/or KV according to patient size, use of iterative reconstruction technique. Findings: No focal liver or splenic lesion Prominent patient motion severely degrades scan image quality No definite edema surrounding the pancreas No renal calculi or hydronephrosis Aorta normal size Normal appendix No bowel obstruction Urinary bladder intact Impression: The entire study is severely degraded by patient motion Negative for pancreatitis Normal appendix
[2025-01-06 23:17] LABS: Carbon Dioxide < 10.0 mMol/L (20.0-31.0); Glucose 695 mg/dL (74-106); Potassium 6.7 mMol/L (3.4-5.1)
[2025-01-06 23:19] LABS: Allen Test Performed/OK; Puncture Site Right Radial
[2025-01-06 23:21] LABS: pH, Arterial 7.02 (7.35-7.45)
[2025-01-06 23:22] LABS: Bilirubin,Urine Negative (Negative); Blood,Urine 1+ (Negative); Clarity,Urine Clear (Clear/Hazy); Color,Urine Lt-Yellow (Lt Yel-Yel); Glucose, Urine 4+ (Negative); Hyaline Casts,Urine 1 /hpf (0-1); Ketones,Urine 3+ (Negative); Leukocyte Esterase,Urine Negative (Negative); Nitrite,Urine Negative (Negative); PH,Urine 5.5 (5.0-7.0); Protein,Urine 2+ (Neg - Trace); RBC,Urine 2 /hpf (0-3); Specific Gravity,Urine 1.023 (1.001-1.035); Squamous Epithelial Cell,Urine < 1 /hpf (0-5); Urobilinogen,Urine Negative mg/dL (0.0-1.0); WBC,Urine 1 /hpf (0-5)
[2025-01-06 23:33] LABS: Glucose Estimated Average 355 mg/dL (80-131); Hemoglobin A1C > 14.0 % Hgb (4.8-6.0)
[2025-01-07] VITALS (24 sets, daily range): BP systolic 121–155; BP diastolic 69–98; PULSE 68–97; RESP 14–29; TEMP 36.3–37; O2SAT 96–100; BMI 20.5
[2025-01-07 00:01] LABS: Lactic Acid, 3 HR 1.6 mMol/L (0.4-2.0)
[2025-01-07] MEDS: RINGERS LACTATED 1000 ML 1,000 ML 250 ML IV ×2 (00:32→04:35)
[2025-01-07 00:48] LABS: Acetaminophen < 2.0 mcg/mL (10.0-20.0); Phosphorous 4.1 mg/dL (2.4-5.1); Salicylate < 3.0 mg/dL
--- NOTE | 2025-01-07 02:00 | EKG_ITS ---
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
[2025-01-07 02:47] LABS: Base Excess, Venous -18 (-3-3); O2 Saturation, Venous 45 % (96-97); PCO2, Venous 26 mmHg (36-56); PO2, Venous 24 mmHg (15-58); pH, Venous 7.16 (7.33-7.66)
--- NOTE | 2025-01-07 02:50 | PRELIM_ITS ---
CT scan of the abdomen and pelvis without intravenous contrast (axial sections with sagittal and coronal reformats) January 07, 2025 0124 hours Clinical History: Rule out pancreatitis Comparison: None Findings: The evaluation of gallbladder and pancreas is markedly limited due to respiratory motion artifacts. The liver, pancreas, spleen, kidneys and adrenals are grossly unremarkable on this noncontrast study. No evidence of bowel obstruction. A moderate amount of fecal material is present in the colon. The appendix is within normal limits (axial images 132- 158/280). There is no mesenteric or retroperitoneal adenopathy. There is mild prostatomegaly. The urinary bladder is partially distended and shows mild wall thickening; possibility of cystitis or bladder outlet obstruction cannot be excluded. There is no free fluid or free air. Degenerative endplate changes are identified in the spine. Schmorl's node formation is noted at multiple levels in the thoracolumbar vertebrae. The lung bases are clear. Please note that evaluation of soft tissue/vascular structures and bowel loops is limited due to absence of IV and oral contrast. Impression: Markedly limited study due to respiratory motion artifacts. 1. No definitive evidence of acute pancreatitis to the extent visualized; however, possibility of subtle acute pancreatic pathology cannot be excluded due to motion artifacts. 2. Partially distended urinary bladder with mild wall thickening; possibility of cystitis or bladder outlet obstruction cannot be excluded. 3. Other findings as described above. Suggest clinical correlation and follow up accordingly. Report Electronically Signed By: Jamel Mncally 01/07/2025 2:50:29 AM [EST]
[2025-01-07 02:51] LABS: Lactate (Lactic Acid) 4.6 mMol/L (0.4-2.0)
[2025-01-07 03:47] LABS: Albumin, Serum 4.4 gm/dL (3.5-5.0); Anion Gap 18 (7-16); BUN/Creatinine Ratio 15 Ratio (12-20); Blood Urea Nitrogen 20 mg/dL (9-23); Calcium 8.6 mg/dL (8.3-10.6); Calcium (Corrected) 8.6 mg/dL (8.5-10.1); Chloride 108 mMol/L (98-107); Creatinine (Component) 1.3 mg/dL (0.6-1.3); Estimated Creatinine Clearance 78.6 mL/min (>60); Glucose 278 mg/dL (74-106); Magnesium 1.8 mg/dL (1.6-2.6); Osmolality,Calculated 284 (275-295); Phosphorous 2.1 mg/dL (2.4-5.1); Potassium 4.4 mMol/L (3.4-5.1); Sodium 136 mMol/L (136-145); eGFR > 60 See Note
[2025-01-07 03:49] LABS: Carbon Dioxide < 10.0 mMol/L (20.0-31.0)
[2025-01-07] MEDS: POTASSIUM CHL 10 mEq IVPB 10 MEQ/100 ML BAG 50 MEQ IV (03:58)
[2025-01-07] MEDS: RINGERS LACTATED 1000 ML 1,000 ML 999 ML IV (05:00)
[2025-01-07 05:44] LABS: Reflex Lactate? Y
[2025-01-07] MEDS: KCL 20 mEq/L in D5-LR 20 MEQ/1,000 ML BAG 250 MEQ IV (06:00)
[2025-01-07] MEDS: HEPARIN SOD INJ 5000 UNIT/ML VIAL SC ×3 (06:03→21:31)
[2025-01-07 08:14] LABS: Base Excess, Venous -10 (-3-3); Lactic Acid, 3 HR 0.8 mMol/L (0.4-2.0); O2 Saturation, Venous 96 % (96-97); PCO2, Venous 26 mmHg (36-56); PO2, Venous 82 mmHg (15-58); pH, Venous 7.35 (7.33-7.66)
[2025-01-07 08:16] LABS: Beta Hydroxybutyrate 1.4 mmol/L (<0.6)
[2025-01-07 08:23] LABS: Basophils % (Auto) 0 % (0-2.5); Eosinophils % (Auto) 0 % (0-10); Hematocrit 39.7 % (41.0-53.0); Hemoglobin 14.1 g/dL (13.5-16.0); Immature Granulocytes % (Auto) 1 % (0-0); Immature Granulocytes Auto 0.08 Thou/mm3 (0.00-0.00); Lymphocytes # (Auto) 1.5 Thou/mm3 (1.0-4.8); Lymphocytes % (Auto) 10 % (10-50); Mean Corpuscular HGB Conc 35.5 g/dl (31.0-37.0); Mean Corpuscular Hemoglobin 27.2 pg (25.0-35.0); Mean Corpuscular Volume 77 fL (80-100); Monocytes # (Auto) 0.9 Thou/mm3 (0.0-0.8); Monocytes % (Auto) 6 % (0-12); Neutrophils # (Auto) 11.6 Thou/mm3 (1.8-7.7); Neutrophils % (Auto) 82 % (37-80); Nucleated Red Blood Cell % 0 /100 WBC (0); Platelet Count 254 Thou/mm3 (140-440); RDW Standard Deviation 40.7 fL (35.1-43.9); Red Blood Count 5.18 Miln/mm3 (4.50-5.90); White Blood Count 14.1 Thou/mm3 (3.8-10.6)
[2025-01-07] MEDS: CALCIUM GLUC/NS 1000MG IVPB 1,000 MG/50 ML BAG 50 MG IV (08:39)
[2025-01-07 09:13] LABS: Alanine Aminotransferase 9 U/L (10-49); Albumin, Serum 4.7 gm/dL (3.5-5.0); Alkaline Phosphatase 75 U/L (46-116); Anion Gap 9 (7-16); Aspartate Amino Transferase 10 U/L (0-34); BUN/Creatinine Ratio 15 Ratio (12-20); Bilirubin,Total 0.7 mg/dL (0.3-1.2); Blood Urea Nitrogen 17 mg/dL (9-23); Calcium 9.3 mg/dL (8.3-10.6); Calcium (Corrected) 9.3 mg/dL (8.5-10.1); Carbon Dioxide 15.2 mMol/L (20.0-31.0); Cardiac Risk Estimate 4.9 RATIO (4.0-6.7); Chloride 112 mMol/L (98-107); Cholesterol 233 mg/dL (132-200); Creatinine (Component) 1.1 mg/dL (0.6-1.3); Estimated Creatinine Clearance 91.9 mL/min (>60); Globulin 2.4 gm/dL (2.3-3.5); Glucose 167 mg/dL (74-106); HDL Cholesterol 48 mg/dL (40-60); LDL Cholesterol,Calculated 168 mg/dL (0-130); Magnesium 1.9 mg/dL (1.6-2.6); Osmolality,Calculated 277 (275-295); Potassium 3.9 mMol/L (3.4-5.1); Sodium 136 mMol/L (136-145); Total Protein 7.1 gm/dL (5.7-8.2); Triglycerides 86 mg/dL (30-150); eGFR > 60 See Note
--- NOTE | 2025-01-07 12:53 | ESPR_ITS ---
Documentation for date of: 01/07/25 Subjective Subjective Interval history: 29 year old male with PMH of Type 1 DM who presented to the ER for feeling sick and shaky. He endorsed headache, nonbloody vomiting, palpitations, stomach pain. Patient was on a 3 day cocaine binge. He did not take his insulin today. He got into an argument with his partner and took an unknown amount of pills of setraline, famotidine, and ondansetron. He denies bloody vomit, diarrhea. He denies visual hallucinations, thoughts of hurting himself or others. In the ER, vitals significant for hypertension, tachycardia and tachypnea. Sepsis alert was called. eLabs shodw leukocytosis, hyponatremia, hyperkalemic at 6.7 and AGMA with CO2 < 10 and hyperglycemic at 691. Poison controlled contaactedm QTc normal, no further action. Patient admitted to ICU for management of DKA 01/07: Patients morning labs gap closed once, paient refers significan clinical improvement, denies nausea, vomiting or abdominal pain, he feels hungry. We will wait for the repeat BMP in 4 hour, if gap closed, we can dpwgrade patient. Exam Vital Signs Temp Pulse Resp BP Pulse Ox O2 Del Method 98.6 F 81 15 121/75 98 Room Air 01/07/25 08:00 01/07/25 12:00 01/07/25 12:00 01/07/25 12:00 01/07/25 12:00 01/07/25 08:00 Narrative Exam GENERAL: Awake, alert and oriented. No acute distress. HEENT: Normocephalic, atraumatic and nontender.? Pupils are equal and reactive to light and accommodation.? Oral mucosa are moist. NECK: Supple without adenopathy. [place]que[place] midline. Nontender, carotid pulse 2+ bilaterally without bruits, no JVD.? CHEST: Heart rate and rythm normal, no murmurs, gallops auscultated. S1 & 2 normal insensity. Nontender on palpation, no deformity and no crepitus. LUNGS: Lung sounds are clear.? No wheezing, rales or ronchi.? No intercostal subcostal retraction. Room air ABDOMEN: Soft,symmetric , nontender, no guarding or rebound tenderness. No abnormal masses palpated.? No pulsatile masses or bruits.? Bowel sounds are normoactive in all 4 quadrants. EXTREMITIES: Nontender.? No pitting edema.? No cyanosis.? Patient is able to move all 4 extremities. SKIN: No rashes noted. NEURO:? Cranial nerves intact.? There is no focalization.? GCS is 15. Objective Labs 01/07/25 08:00 01/07/25 08:00 Labs: Laboratory Results - last 24 hr 01/06/25 01/06/25 01/06/25 19:41 21:46 22:21 WBC 18.3 H RBC 5.98 H Hgb 16.1 H Hct 48.0 MCV 80 MCH 26.9 MCHC 33.5 RDW Std Deviation 43.4 Plt Count 433 D Neut % (Auto) 87 H Lymph % (Auto) 7 L [place] % (Auto) 6 Eos % (Auto) 0 Baso % (Auto) 0 Neut # (Auto) 15.9 H Lymph # (Auto) 1.2 [place] # (Auto) 1.0 H Eos # (Auto) 0.0 Baso # (Auto) 0.1 Immature Gran # (Auto) 0.20 H Absolute Nucleated RBC 0.00 Immature Gran % 1 H Nucleated RBC % 0 PT 11.4 INR 1.0 APTT 33.1 Puncture Site ABG pH ABG pCO2 ABG pO2 ABG HCO3 ABG O2 Saturation ABG Base Excess VBG pH 6.93 L VBG pCO2 22 L VBG pO2 53 VBG O2 Sat (Gareth) 82 L VBG Base Excess -27 L FiO2 Sodium 127 L 129 L Potassium 6.7 H* 6.7 H* Chloride 99 101 Carbon Dioxide < 10.0 L* < 10.0 L* Anion Gap 18 H 18 H BUN 24 H 26 H Creatinine 2.2 H 2.2 H Estim Creat Clear Calc 46.5 L 46.5 L eGFR 41 L 41 L BUN/Creatinine Ratio 11 L 12 Glucose 691 H* 695 H* Estimated Ave Glu mg/dL 355 H Hemoglobin A1c > 14.0 H Calculated Osmolality 292 296 H Lactic Acid 2.9 H Calcium 9.7 9.0 Corrected Calcium 9.7 Cancelled Phosphorus Magnesium 2.2 Total Bilirubin 0.5 Cancelled AST 18 Cancelled ALT 15 Cancelled Alkaline Phosphatase 105 Cancelled Troponin I < 0.020 Total Protein 9.1 H Cancelled Albumin 5.9 H Cancelled Globulin 3.2 Cancelled Albumin/Globulin Ratio 1.8 Cancelled Triglycerides Cholesterol LDL Cholesterol, Calc HDL Cholesterol Cholesterol/HDL Ratio Lipase 376 H Beta-Hydroxybutyrate/Acetoacetate 5.1 H Procalcitonin 0.10 Ur Collection Type Clean Catch Urine Color Lt-Yellow Urine Clarity Clear Urine pH 5.5 Ur Specific [place] 1.023 Urine Protein 2+ A Urine Glucose (UA) 4+ A Urine Ketones 3+ A Urine Blood 1+ A Urine Nitrite Negative Urine Bilirubin Negative Urine Urobilinogen (Auto) Negative Ur Leukocyte Esterase Negative Urine RBC 2 Urine WBC 1 Ur Squamous Epith Cells < 1 Urine Bacteria None Hyaline Casts 1 Salicylates Acetaminophen 01/06/25 01/06/25 01/07/25 23:05 23:54 02:17 WBC RBC Hgb Hct MCV MCH MCHC RDW Std Deviation Plt Count Neut % (Auto) Lymph % (Auto) [place] % (Auto) Eos % (Auto) Baso % (Auto) Neut # (Auto) Lymph # (Auto) [place] # (Auto) Eos # (Auto) Baso # (Auto) Immature Gran # (Auto) Absolute Nucleated RBC Immature Gran % Nucleated RBC % PT INR APTT Puncture Site Right Radial ABG pH 7.02 L* ABG pCO2 9 L* ABG pO2 139 H ABG HCO3 2 L* ABG O2 Saturation 98 ABG Base Excess -26 L VBG pH 7.16 L VBG pCO2 26 L VBG pO2 24 D VBG O2 Sat (Gareth) 45 L D VBG Base Excess -18 L FiO2 21 Sodium 136 Potassium 4.4 D Chloride 108 H Carbon Dioxide < 10.0 L* Anion Gap 18 H BUN 20 Creatinine 1.3 D Estim Creat Clear Calc 78.6 eGFR > 60 BUN/Creatinine Ratio 15 Glucose [address] Glu mg/dL Hemoglobin A1c Calculated Osmolality 284 Lactic Acid 1.6 4.6 H* Calcium 8.6 Corrected Calcium 8.6 Phosphorus 4.1 2.1 L Magnesium 1.8 Total Bilirubin AST ALT Alkaline Phosphatase Troponin I Total Protein Albumin 4.4 D Globulin Albumin/Globulin Ratio Triglycerides Cholesterol LDL Cholesterol, Calc HDL Cholesterol Cholesterol/HDL Ratio Lipase Beta-Hydroxybutyrate/Acetoacetate Procalcitonin Ur Collection Type Urine Color Urine Clarity Urine pH Ur Specific [place] Urine Protein Urine Glucose (UA) Urine Ketones Urine Blood Urine Nitrite Urine Bilirubin Urine Urobilinogen (Auto) Ur Leukocyte Esterase Urine RBC Urine WBC Ur Squamous Epith Cells Urine Bacteria Hyaline Casts Salicylates < 3.0 Acetaminophen < 2.0 L 01/07/25 08:00 WBC 14.1 H RBC 5.18 Hgb 14.1 D Hct 39.7 L MCV 77 L MCH 27.2 MCHC 35.5 RDW Std Deviation 40.7 Plt Count 254 D Neut % (Auto) 82 H Lymph % (Auto) 10 [place] % (Auto) 6 Eos % (Auto) 0 Baso % (Auto) 0 Neut # (Auto) 11.6 H Lymph # (Auto) 1.5 [place] # (Auto) 0.9 H Eos # (Auto) 0.0 Baso # (Auto) 0.0 Immature Gran # (Auto) 0.08 H Absolute Nucleated RBC 0.00 Immature Gran % 1 H Nucleated RBC % 0 PT INR APTT Puncture Site ABG pH ABG pCO2 ABG pO2 ABG HCO3 ABG O2 Saturation ABG Base Excess VBG pH 7.35 VBG pCO2 26 L VBG pO2 82 H D VBG O2 Sat (Gareth) 96 D VBG Base Excess -10 L FiO2 Sodium 136 Potassium 3.9 D Chloride 112 H Carbon Dioxide 15.2 L Anion Gap 9 BUN 17 Creatinine 1.1 Estim Creat Clear Calc 91.9 eGFR > 60 BUN/Creatinine Ratio 15 Glucose [address] Glu mg/dL Hemoglobin A1c Calculated Osmolality 277 Lactic Acid 0.8 Calcium 9.3 Corrected Calcium 9.3 Phosphorus 2.0 L Magnesium 1.9 Total Bilirubin 0.7 AST 10 ALT 9 L Alkaline Phosphatase 75 D Troponin I Total Protein 7.1 Albumin 4.7 Globulin 2.4 Albumin/Globulin Ratio 2.0 Triglycerides 86 Cholesterol 233 H LDL Cholesterol, Calc 168 H HDL Cholesterol 48 Cholesterol/HDL Ratio 4.9 Lipase Beta-Hydroxybutyrate/Acetoacetate 1.4 H Procalcitonin Ur Collection Type Urine Color Urine Clarity Urine pH Ur Specific [place] Urine Protein Urine Glucose (UA) Urine Ketones Urine Blood Urine Nitrite Urine Bilirubin Urine Urobilinogen (Auto) Ur Leukocyte Esterase Urine RBC Urine WBC Ur Squamous Epith Cells Urine Bacteria Hyaline Casts Salicylates Acetaminophen ABG Interpretation ABG results: 01/06/25 01/06/25 01/07/25 21:46 23:05 02:17 ABG pH 7.02 L* ABG pCO2 9 L* ABG pO2 139 H ABG HCO3 2 L* ABG O2 Saturation 98 ABG Base Excess -26 L VBG pH 6.93 L 7.16 L VBG pCO2 22 L 26 L VBG pO2 53 24 D VBG Base Excess -27 L -18 L 01/07/25 08:00 ABG pH ABG pCO2 ABG pO2 ABG HCO3 ABG O2 Saturation ABG Base Excess VBG pH 7.35 VBG pCO2 26 L VBG pO2 82 H D VBG Base Excess -10 L Quality Measures Quality Measures sepsis Current suspected stage: ruled out Possible source: pulmonary and GI tract/intra-abdominal Blood cultures ordered: yes Antibiotic ordered: No and none Assessment & Plan Assessment Current Active Medications: Generic Name Dose Route Start Last Admin Trade Name Freq PRN Reason Stop Dose Admin Acetaminophen 650 mg 01/06/25 22:51 Acetaminophen 325 Mg Tablet PO 02/05/25 22:50 Q6H PRN Fever >101.5 Dextrose 25 ml 01/06/25 22:53 Dextrose 50%-Water Inj 50 Ml Syringe IV [id number] PRN Blood Sugar - Low Heparin Sodium (Porcine) 5,000 unit 01/07/25 06:00 01/07/25 06:03 Heparin Sod Inj 5000 Unit/Ml Vial SC 01/21/25 05:59 5,000 unit Q8HR GRIFFIN Administration Insulin Human Regular 100 unit in 100 mls @ 6.573 mls/hr 01/06/25 22:19 01/07/25 12:00 Myxredlin IV 02/05/25 22:18 0.1 unit/kg/hr .[id number] PRN 6.573 mls/hr PER PROTOCOL Titration Protocol 0.1 UNIT/KG/HR Potassium Chloride 10 meq in 100 mls @ 100 mls/hr 01/06/25 22:53 Kcl Ivpb IV 02/05/25 22:52 .Q1H PRN IF POTASSIUM LESS THAN 3.3 Magnesium Sulfate 2 gm in 50 mls @ 25 mls/hr 01/06/25 22:53 Magnesium Sulfate Ivpb IV 02/05/25 22:52 .Q2H PRN PER DKA PROTOCOL Dextrose/Lactated Ringer's 1,000 mls @ 250 mls/hr 01/06/25 22:53 D5-Lr IV 02/05/25 22:52 .Q4H PRN PER PROTOCOL Lactated Ringer's 1,000 mls @ 250 mls/hr 01/06/25 22:53 01/07/25 05:00 Lactated Ringers IV 01/07/25 22:52 0 mls/hr .Q4H PRN Infusion PER PROTOCOL Potassium Chloride 20 meq/ 1,010 mls @ 250 mls/hr 01/06/25 22:53 Lactated Ringer's IV 02/05/25 22:52 .Q4H3M PRN K LEVEL 3.3 TO 5.3mM/L Potassium Chloride 40 meq/ 1,020 mls @ 250 mls/hr 01/06/25 22:53 Lactated Ringer's IV 02/05/25 22:52 .Q4H5M PRN K LEVEL < 3.3 mM/L Potassium Chloride 40 meq/ 1,020 mls @ 250 mls/hr 01/06/25 22:53 Dextrose/Lactated Ringer's IV 02/05/25 22:52 .Q4H5M PRN K LEVEL < 3.3mM/L Potassium Cl/Dextrose/Lact Ringer's 20 meq in 1,000 mls @ 250 mls/hr 01/06/25 22:53 01/07/25 06:00 Kcl 20 Meq/L In D5-Lr IV 02/05/25 22:52 250 mls/hr .Q4H PRN Administration K LEVEL 3.3 TO 5.3 mM/L Potassium Chloride 10 meq in 100 mls @ 50 mls/hr 01/06/25 22:53 01/07/25 03:58 Kcl Ivpb IV 02/05/25 22:52 50 mls/hr PRN PRN Administration K LEVEL 3.3 to 5.3 & BG > 200 Potassium Phosphate 15 mmol in 250 mls @ 62.5 mls/hr 01/06/25 22:53 Pot Phos 15 Mmol In Ns 250 Ml IV 02/05/25 22:52 PRN PRN Phosphate <= 1mg/dL Sodium Phosphate 15 mmol/ 255 mls @ 62.5 mls/hr 01/06/25 22:53 Sodium Chloride IV 02/05/25 22:52 .Q4H5M PRN Phosphate <= 1mg/dL and K> than 5.3 Sodium Bicarbonate 50 ml 01/06/25 22:53 Sodium Bicarb Inj 8.4% Syr 50 Ml Syringe IV 02/05/25 22:52 PRN PRN For ph <= to 7.0 Plan Patient is a 29 year old male with PMH of DM who is admitted to the ICU for 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 QTc within normal range - Avoid beta blockers due to cocaine intoxication - Acetaminophen level, salicylic level non elevated - Hold home setraline CARDIOVASCULAR Stable RESPIRATORY Stable RENAL #ERIC, resolved Pre real in the setting of dehydration due to DKA GI -Stable ENDO #DKA, RESOLVED A1c > 14 Likely due to non-compliance and drug intoxication; less likely infection or [place] - Insulin ggt per protocol, replete electrolytes - NPO HEME Leukocytosis, likely hemoconcentrated, downtrending ID Stable Health Maintenance Disposition: Admit to ICU for DKA, downgrade to floors after repeat BMP gap closed 2x times Diet and fluids: NPO, IVF DVT prophylaxis: heparin GI prophylaxis: none Lines: PIV CODE STATUS: FULL I have reviewed and discussed the patient's care with my attending, Dr. Osmar Nelson MD PGY-3 Attending Provider Attestation/Addendum Patient seen and examined with resident. Agree with above. In brief this is a 29-year-old male admitted to the ICU for DKA. He developed DKA for noncompliance with insulin and excessive cocaine use. This morning he is awake but not cooperative with history. His exam is wnl. fu with labs q4hrs and DKA protocol. will transition to subq once AG is closed x2 case d/w ICU team labs, imaging, records reviewed ~40min required for eval exam review, intervention discussion and formulation of POC
[2025-01-07] MEDS: INSULIN REG 100 UNITS/100 ML 100 UNIT/100 ML BAG IV (13:00)
[2025-01-07 13:02] LABS: Base Excess, Venous -7 (-3-3); O2 Saturation, Venous 98 % (96-97); PCO2, Venous 29 mmHg (36-56); PO2, Venous 139 mmHg (15-58); pH, Venous 7.36 (7.33-7.66)
[2025-01-07] MEDS: POT CHL ADDITIVE 20 MEQ in RINGERS LACTATED 1000 ML 1,000 ML 250 MEQ IV (13:15)
[2025-01-07 13:24] LABS: Albumin, Serum 4.3 gm/dL (3.5-5.0); Anion Gap 8 (7-16); BUN/Creatinine Ratio 16 Ratio (12-20); Blood Urea Nitrogen 16 mg/dL (9-23); Carbon Dioxide 17.6 mMol/L (20.0-31.0); Chloride 109 mMol/L (98-107); Estimated Creatinine Clearance 101.1 mL/min (>60); Glucose 243 mg/dL (74-106); Magnesium 1.8 mg/dL (1.6-2.6); Osmolality,Calculated 279 (275-295); Potassium 3.6 mMol/L (3.4-5.1); Sodium 135 mMol/L (136-145); eGFR > 60 See Note
[2025-01-07] MEDS: POT CHL ADDITIVE 20 MEQ in DEXTROSE 5%-LACTATED RINGERS 1,000 ML 250 MEQ IV (13:51)
[2025-01-07] MEDS: INSULIN GLARGINE (Lantus) 5 UNIT/0.05 ML (PER 5 UNITS) 20 UNIT SC (15:11)
[2025-01-07] MEDS: INSULIN LISPRO (AdmeLOG) 1 UNIT/0.01 ML UNIT SC ×2 (17:51→21:30)
[2025-01-07] MEDS: INSULIN GLARGINE (Lantus) 5 UNIT/0.05 ML (PER 5 UNITS) 10 UNIT SC (18:01)
--- NOTE | 2025-01-07 19:25 | PD.RESPRO ---
Documentation for date of: 01/07/25 Subjective Subjective Interval history: Patient is a 29 year old male with a PMH of type I DM, poly substance use disorder, and LOUIE who was admitted directly into the ICU on 01/06/2025 for DKA and cocaine intoxication. Patient was downgraded onto floors on 01/07/2025 for further managment of diabetes mellitus type I, insulin dependent. Patient examined at beside denying any chest pain or shortness of breath. Patient stated he recenlty took some cocaine and relapsed. Patient also stated he took 3 different entire bottles of medication, including Sertraline, famotidine, and ondansetron. Patient stated he had SI and wanted to commit sucide. Pateint denies thoughts of self harm currently or thoughts of harming others. Consult social contact worker. C-peptide follow. Continue to monitor glucose and adjust insulin intake as needed. Consult social service and crisis prevention team. Exam Vital Signs Temp Pulse Resp BP Pulse Ox O2 Del Method 98.1 F 84 24 H 125/69 99 Room Air 01/07/25 16:05 01/07/25 17:00 01/07/25 17:00 01/07/25 17:00 01/07/25 17:00 01/07/25 16:05 Narrative Exam General Appearance: Alert & Oriented X3, well-nourished male who is lying in bed in no acute distress HEENT: Skull symmetrical and atraumatic. Conjunctivae pin and moist. Pupils equal, round, reactive to light and accommodation (PERRL). External ear without lesion or discharge. Straight, nares patient, mucosa pink, no discharge. No thyroid nodule appreciated. No cervical lymphadenopathy. Cardio: Normal Rate and Rhythm with S1 and S2 heart sounds. No murmurs or extra heart sounds auscultated. No bruits on carotid auscultation. No peripheral edema or cyanosis. Lungs: Symmetric with good expansion. Chest and back non-tender. Breath sounds vesicular without crackles, wheezing or rhonchi Abdomen: Non-tender, Non-distended, Normal Reactive Bowel Sounds Neuro: Alert, cooperative, oriented to person, place, and time. Speech clear. CN grossly intact. Upper motor strength 5/5 and Lower motor strength 5/5. Sensation intact. Objective Labs 01/08/25 05:54 01/08/25 05:54 Labs: Laboratory Results - last 24 hr 01/06/25 01/06/25 01/06/25 19:41 21:46 22:21 WBC 18.3 H RBC 5.98 H Hgb 16.1 H Hct 48.0 MCV 80 MCH 26.9 MCHC 33.5 RDW Std Deviation 43.4 Plt Count 433 D Neut % (Auto) 87 H Lymph % (Auto) 7 L [place] % (Auto) 6 Eos % (Auto) 0 Baso % (Auto) 0 Neut # (Auto) 15.9 H Lymph # (Auto) 1.2 [place] # (Auto) 1.0 H Eos # (Auto) 0.0 Baso # (Auto) 0.1 Immature Gran # (Auto) 0.20 H Absolute Nucleated RBC 0.00 Immature Gran % 1 H Nucleated RBC % 0 PT 11.4 INR 1.0 APTT 33.1 Puncture Site ABG pH ABG pCO2 ABG pO2 ABG HCO3 ABG O2 Saturation ABG Base Excess VBG pH 6.93 L VBG pCO2 22 L VBG pO2 53 VBG O2 Sat (Gareth) 82 L VBG Base Excess -27 L FiO2 Sodium 127 L 129 L Potassium 6.7 H* 6.7 H* Chloride 99 101 Carbon Dioxide < 10.0 L* < 10.0 L* Anion Gap 18 H 18 H BUN 24 H 26 H Creatinine 2.2 H 2.2 H Estim Creat Clear Calc 46.5 L 46.5 L eGFR 41 L 41 L BUN/Creatinine Ratio 11 L 12 Glucose 691 H* 695 H* Estimated Ave Glu mg/dL 355 H Hemoglobin A1c > 14.0 H Calculated Osmolality 292 296 H Lactic Acid 2.9 H Calcium 9.7 9.0 Corrected Calcium 9.7 Cancelled Phosphorus Magnesium 2.2 Total Bilirubin 0.5 Cancelled AST 18 Cancelled ALT 15 Cancelled Alkaline Phosphatase 105 Cancelled Troponin I < 0.020 Total Protein 9.1 H Cancelled Albumin 5.9 H Cancelled Globulin 3.2 Cancelled Albumin/Globulin Ratio 1.8 Cancelled Triglycerides Cholesterol LDL Cholesterol, Calc HDL Cholesterol Cholesterol/HDL Ratio Lipase 376 H Beta-Hydroxybutyrate/Acetoacetate 5.1 H Procalcitonin 0.10 Ur Collection Type Clean Catch Urine Color Lt-Yellow Urine Clarity Clear Urine pH 5.5 Ur Specific [place] 1.023 Urine Protein 2+ A Urine Glucose (UA) 4+ A Urine Ketones 3+ A Urine Blood 1+ A Urine Nitrite Negative Urine Bilirubin Negative Urine Urobilinogen (Auto) Negative Ur Leukocyte Esterase Negative Urine RBC 2 Urine WBC 1 Ur Squamous Epith Cells < 1 Urine Bacteria None Hyaline Casts 1 Salicylates Acetaminophen 01/06/25 01/06/25 01/07/25 23:05 23:54 02:17 WBC RBC Hgb Hct MCV MCH MCHC RDW Std Deviation Plt Count Neut % (Auto) Lymph % (Auto) [place] % (Auto) Eos % (Auto) Baso % (Auto) Neut # (Auto) Lymph # (Auto) [place] # (Auto) Eos # (Auto) Baso # (Auto) Immature Gran # (Auto) Absolute Nucleated RBC Immature Gran % Nucleated RBC % PT INR APTT Puncture Site Right Radial ABG pH 7.02 L* ABG pCO2 9 L* ABG pO2 139 H ABG HCO3 2 L* ABG O2 Saturation 98 ABG Base Excess -26 L VBG pH 7.16 L VBG pCO2 26 L VBG pO2 24 D VBG O2 Sat (Gareth) 45 L D VBG Base Excess -18 L FiO2 21 Sodium 136 Potassium 4.4 D Chloride 108 H Carbon Dioxide < 10.0 L* Anion Gap 18 H BUN 20 Creatinine 1.3 D Estim Creat Clear Calc 78.6 eGFR > 60 BUN/Creatinine Ratio 15 Glucose [address] Glu mg/dL Hemoglobin A1c Calculated Osmolality 284 Lactic Acid 1.6 4.6 H* Calcium 8.6 Corrected Calcium 8.6 Phosphorus 4.1 2.1 L Magnesium 1.8 Total Bilirubin AST ALT Alkaline Phosphatase Troponin I Total Protein Albumin 4.4 D Globulin Albumin/Globulin Ratio Triglycerides Cholesterol LDL Cholesterol, Calc HDL Cholesterol Cholesterol/HDL Ratio Lipase Beta-Hydroxybutyrate/Acetoacetate Procalcitonin Ur Collection Type Urine Color Urine Clarity Urine pH Ur Specific [place] Urine Protein Urine Glucose (UA) Urine Ketones Urine Blood Urine Nitrite Urine Bilirubin Urine Urobilinogen (Auto) Ur Leukocyte Esterase Urine RBC Urine WBC Ur Squamous Epith Cells Urine Bacteria Hyaline Casts Salicylates < 3.0 Acetaminophen < 2.0 L 01/07/25 01/07/25 08:00 12:38 WBC 14.1 H RBC 5.18 Hgb 14.1 D Hct 39.7 L MCV 77 L MCH 27.2 MCHC 35.5 RDW Std Deviation 40.7 Plt Count 254 D Neut % (Auto) 82 H Lymph % (Auto) 10 [place] % (Auto) 6 Eos % (Auto) 0 Baso % (Auto) 0 Neut # (Auto) 11.6 H Lymph # (Auto) 1.5 [place] # (Auto) 0.9 H Eos # (Auto) 0.0 Baso # (Auto) 0.0 Immature Gran # (Auto) 0.08 H Absolute Nucleated RBC 0.00 Immature Gran % 1 H Nucleated RBC % 0 PT INR APTT Puncture Site ABG pH ABG pCO2 ABG pO2 ABG HCO3 ABG O2 Saturation ABG Base Excess VBG pH 7.35 7.36 VBG pCO2 26 L 29 L VBG pO2 82 H D 139 H D VBG O2 Sat (Gareth) 96 D 98 H VBG Base Excess -10 L -7 L FiO2 Sodium 136 135 L Potassium 3.9 D 3.6 Chloride 112 H 109 H Carbon Dioxide 15.2 L 17.6 L Anion Gap 9 8 BUN 17 16 Creatinine 1.1 1.0 Estim Creat Clear Calc 91.9 101.1 eGFR > 60 > 60 BUN/Creatinine Ratio 15 16 Glucose 167 H D [address] Glu mg/dL Hemoglobin A1c Calculated Osmolality 277 279 Lactic Acid 0.8 1.0 Calcium 9.3 9.0 Corrected Calcium 9.3 9.0 Phosphorus 2.0 L 2.0 L Magnesium 1.9 1.8 Total Bilirubin 0.7 AST 10 ALT 9 L Alkaline Phosphatase 75 D Troponin I Total Protein 7.1 Albumin 4.7 4.3 Globulin 2.4 Albumin/Globulin Ratio 2.0 Triglycerides 86 Cholesterol 233 H LDL Cholesterol, Calc 168 H HDL Cholesterol 48 Cholesterol/HDL Ratio 4.9 Lipase Beta-Hydroxybutyrate/Acetoacetate 1.4 H Procalcitonin Ur Collection Type Urine Color Urine Clarity Urine pH Ur Specific [place] Urine Protein Urine Glucose (UA) Urine Ketones Urine Blood Urine Nitrite Urine Bilirubin Urine Urobilinogen (Auto) Ur Leukocyte Esterase Urine RBC Urine WBC Ur Squamous Epith Cells Urine Bacteria Hyaline Casts Salicylates Acetaminophen ABG Interpretation ABG results: 01/06/25 01/06/25 01/07/25 21:46 23:05 02:17 ABG pH 7.02 L* ABG pCO2 9 L* ABG pO2 139 H ABG HCO3 2 L* ABG O2 Saturation 98 ABG Base Excess -26 L VBG pH 6.93 L 7.16 L VBG pCO2 22 L 26 L VBG pO2 53 24 D VBG Base Excess -27 L -18 L 01/07/25 01/07/25 08:00 12:38 ABG pH ABG pCO2 ABG pO2 ABG HCO3 ABG O2 Saturation ABG Base Excess VBG pH 7.35 7.36 VBG pCO2 26 L 29 L VBG pO2 82 H D 139 H D VBG Base Excess -10 L -7 L Quality Measures Quality Measures sepsis Current suspected stage: ruled out Possible source: pulmonary and GI tract/intra-abdominal Blood cultures ordered: yes Antibiotic ordered: Yes and none Assessment & Plan Assessment Current Active Medications: Generic Name Dose Route Start Last Admin Trade Name Freq PRN Reason Stop Dose Admin Acetaminophen 650 mg 01/06/25 22:51 Acetaminophen 325 Mg Tablet PO 02/05/25 22:50 Q6H PRN Fever >101.5 Dextrose 25 ml 01/07/25 13:53 Dextrose 50%-Water Inj 50 Ml Syringe IV 02/06/25 13:52 Q15MIN PRN BG 50-70 responsive npo pt Dextrose 50 ml 01/07/25 13:53 Dextrose 50%-Water Inj 50 Ml Syringe IV 02/06/25 13:52 Q15MIN PRN BG <50 OR BG <70 & pt unresponsive Glucagon 1 mg 01/07/25 13:53 Glucagon Inj 1 Mg Vial IM Q15MIN PRN BG <70, and no IV access Heparin Sodium (Porcine) 5,000 unit 01/07/25 06:00 01/07/25 13:16 Heparin Sod Inj 5000 Unit/Ml Vial SC 01/21/25 05:59 5,000 unit Q8HR GRIFFIN Administration Potassium Chloride 10 meq in 100 mls @ 100 mls/hr 01/06/25 22:53 Kcl Ivpb IV 02/05/25 22:52 .Q1H PRN IF POTASSIUM LESS THAN 3.3 Magnesium Sulfate 2 gm in 50 mls @ 25 mls/hr 01/06/25 22:53 Magnesium Sulfate Ivpb IV 02/05/25 22:52 .Q2H PRN PER DKA PROTOCOL Insulin Glargine 20 unit 01/07/25 14:00 01/07/25 15:11 Insulin Glargine (Lantus) 5 Unit/0.05 Ml (Per 5 Units) SC 02/06/25 13:59 20 unit QDAY [facility] Administration Insulin Human Lispro 5 unit 01/08/25 08:00 Insulin Lispro (Admelog) 1 Unit/0.01 Ml Unit [place] 02/07/25 07:59 TIDWM [facility] Insulin Human Lispro 0 unit 01/07/25 21:00 Insulin Lispro (Admelog) 1 Unit/0.01 Ml Unit [place] 02/06/25 17:59 ACHS [facility] Protocol Plan Patient is a 29 year old male with a PMH of type I DM, poly substance use disorder, and LOUIE who was admitted directly into the ICU on 01/06/2025 for DKA and cocaine intoxication and downgraded on 01/07/2025. #Diabetes Mellitus type I #Hyperglycemia #DKA, Resolved Previous hospitalizations for DKA and recent re-admission showing ketones in urine, metabolic acidosis with anion gap of 18 w/ pH of 7.12 with ABG. Patient has not been compliant with insulin regimen and did not follow up on C-peptide as outpatient. Continue monitor fasting glucose and adjust insluin as needed. A1c on admission >14 Plan -Insulin Glargine 20 unites QDay -Lispro 5 units TID -Insulin Sliding scale lispro -Order C-peptide in AM -diabetic education -CGM as outpatient #Suicidal Ideation #LOUIE Patient stated that he relapsed and started using cocaine once again and had been feeling overwhelmed over the past few weeks. Patient consumed an entire bottles of Sertraline, Ondansetron, and famotidine. Patient is not having any thoughts of harming others. Plan -Patient would benefit from an remote patient monitor -Consult social contact worker -crisis prevention team. #Polysubstance Use Disorder Patient has a past medical history of poly-substance use disorder, including cocaine and vapes THC. Plan -Follow outpatient -consider psychiatry referral #Metabolic Acidosis, anion gap, resolved Health Maintenance: Disp: Pt is currently admitted to floors for further management of diabetes mellitus type 1 and awaiting social contact worker. FEN: Carb consistent low DVT: on subQ heparin Code: Full Code - The patient's plan was discussed with attending Dr. Jordy Verdin MD PGY1 Internal Medicine Attending Provider Attestation/Addendum I reviewed labs, imaging, EKG, home medications and prior available records. Face to face evaluation was performed by me. I have personally examined the patient and discussed assessment and plan with the IM team. I reviewed the resident note and agree with the plan with exceptions as below. Diabetic ketoacidosis Uncontrolled with hyperglycemia, type I, insulin-dependent Cocaine abuse Medication noncompliance History of generalized anxiety disorder Increased long-acting insulin. Adjust based on the future fingersticks. Continue insulin with meals. Continue sliding scale insulin. Monitor fingersticks Instructed the patient regarding the importance of avoiding cocaine use Instructed the patient regarding the importance of medication compliance. Discuss with pharmacy/dietitian regarding diabetes education Resume home psych medications
[2025-01-08] VITALS (9 sets, daily range): BP systolic 102–122; BP diastolic 62–77; PULSE 58–88; RESP 14–18; TEMP 36.2–36.4; O2SAT 97–99; BMI 20.9
[2025-01-08] MEDS: HEPARIN SOD INJ 5000 UNIT/ML VIAL SC ×3 (06:20→21:00)
--- NOTE | 2025-01-08 06:26 | PC.NURSE ---
patient c/o bumb in his ear that has drainage, upon assessment, small boil near ear canal opening observed draining cream color pus, per patient pain when palpated. Notified Dr. Heath and Dr. Robles, no new orders received, will let day team know.
[2025-01-08 06:29] LABS: Basophils % (Auto) 0 % (0-2.5); Eosinophils % (Auto) 0 % (0-10); Hematocrit 37.5 % (41.0-53.0); Hemoglobin 13.4 g/dL (13.5-16.0); Immature Granulocytes % (Auto) 0 % (0-0); Immature Granulocytes Auto 0.01 Thou/mm3 (0.00-0.00); Lymphocytes # (Auto) 2.3 Thou/mm3 (1.0-4.8); Lymphocytes % (Auto) 33 % (10-50); Mean Corpuscular HGB Conc 35.7 g/dl (31.0-37.0); Mean Corpuscular Hemoglobin 26.6 pg (25.0-35.0); Mean Corpuscular Volume 74 fL (80-100); Monocytes # (Auto) 0.5 Thou/mm3 (0.0-0.8); Monocytes % (Auto) 7 % (0-12); Neutrophils # (Auto) 4.1 Thou/mm3 (1.8-7.7); Neutrophils % (Auto) 59 % (37-80); Nucleated Red Blood Cell % 0 /100 WBC (0); Platelet Count 213 Thou/mm3 (140-440); RDW Standard Deviation 39.6 fL (35.1-43.9); Red Blood Count 5.04 Miln/mm3 (4.50-5.90)
[2025-01-08 07:34] LABS: Alanine Aminotransferase 9 U/L (10-49); Albumin, Serum 4.3 gm/dL (3.5-5.0); Albumin/Globulin Ratio 1.9 (1.2-2.2); Alkaline Phosphatase 72 U/L (46-116); Anion Gap 13 (7-16); Aspartate Amino Transferase 11 U/L (0-34); BUN/Creatinine Ratio 16 Ratio (12-20); Bilirubin,Total 0.9 mg/dL (0.3-1.2); Blood Urea Nitrogen 13 mg/dL (9-23); Calcium 8.9 mg/dL (8.3-10.6); Calcium (Corrected) 8.9 mg/dL (8.5-10.1); Carbon Dioxide 21.4 mMol/L (20.0-31.0); Chloride 104 mMol/L (98-107); Creatinine (Component) 0.8 mg/dL (0.6-1.3); Globulin 2.3 gm/dL (2.3-3.5); Glucose 228 mg/dL (74-106); Osmolality,Calculated 282 (275-295); Phosphorous 2.4 mg/dL (2.4-5.1); Potassium 3.1 mMol/L (3.4-5.1); Sodium 138 mMol/L (136-145); Total Protein 6.6 gm/dL (5.7-8.2); eGFR > 60 See Note
[2025-01-08] MEDS: ACETAMINOPHEN 325 MG TABLET 650 MG PO (07:58)
[2025-01-08] MEDS: INSULIN LISPRO (AdmeLOG) 1 UNIT/0.01 ML UNIT 5 UNIT SC (08:00)
[2025-01-08] MEDS: INSULIN LISPRO (AdmeLOG) 1 UNIT/0.01 ML UNIT SC ×2 (08:00→20:22)
--- NOTE | 2025-01-08 08:34 | PC.SS ---
[employer] conducted bedside contact with the patient conduct initial assessment and to discuss discharge planning.? Patient confirmed demographic information.? Patient resides at home with brother, Seth Borges .? Patient does not utilize any form of DME to assist with ambulation.? Patient does not utilize home oxygen.? Patient describes the ability to complete ADL?s independently.? Patient identified brother, Seth Borges; as medical surrogate decision maker.? Patient utilizes [facility] for PCP services.? Patient utilizes [facility] for medication services.? Patient does not participate with dialysis.? Patient does not possess any specialty providers.? Patient possesses history of diabetes, insulin dependent. ?Patient stated access to functioning glucometer and adequate supplies of lancets/test strips. ?Plan is for the patient to return home at the time of discharge.? Family will provide transportation on behalf of the patient. No discharge needs identified by the patient.? No further intervention required at this time, social psychologist will be available to address any further concerns.? Next of Kin: Sethhue Borges D/C Plan: Home
--- NOTE | 2025-01-08 08:51 | PC.SS ---
Addendum entered by VENUS Butler 01/08/25 14:43: Rounding note: treating DKA, insulin adjustment, CT pending and treating for possible ear infection. Patient will require a mental health evaluation once medically cleared. Original Note: SS update: spoke with Dr. Hills in regards to referral received for the patient needing SS consult. Per Dr. Hills, the patient disclosed SI with intention of ending his life. Dr. Hills informed the patient will need a mental health evaluation once medically cleared. Currently, the patient is pending medical clearance.
--- NOTE | 2025-01-08 09:14 | XR_ITS ---
Examination: CT maxillofacial, with contrast 2-D sagittal and coronal reconstructions. 3-D reconstructions Date and time of exam:January 08, 2025 at 1114 hours INDICATIONS: Left ear pain onset today CTDI: vol (mGy):14.6 DLP: (mGycm):294 Technique: Multiple axial images maxillofacial region, 3.0 mm slice thickness, post intravenous injection 50 cc [id number] 2-D sagittal coronal reconstructions. 3-D reconstructions Low dose protocols were performed. One or more of the following dose reduction techniques were used; automated exposure control, adjustment of the mA and/or KV according to patient size, use of iterative reconstruction technique. Findings: Symmetrical bilateral mastoid aeration Negative for acute mastoiditis Symmetrical internal auditory canals Negative for otitis externa Minimal left otitis media Negative for right otitis media Negative for acquired cholesteatoma Symmetrical optic globes Bilateral chronic maxillary sinus disease including 17 mm polyp in the right maxillary antrum Negative for nasopharyngeal mass Numerous subcentimeter carotid triangle lymph nodes Symmetrical nasopharynx oropharynx IMPRESSION: Negative for chronic or acute mastoiditis Minimal left otitis media Significant maxillary chronic sinus disease
[2025-01-08] MEDS: INSULIN GLARGINE (Lantus) 5 UNIT/0.05 ML (PER 5 UNITS) 30 UNIT SC (09:31)
[2025-01-08] MEDS: POTASSIUM CHLORIDE 10% 20 MEQ/15 ML UDC 40 MEQ PO (09:31)
[2025-01-08] MEDS: POTASSIUM CHLORIDE 10% 20 MEQ/15 ML UDC PO (09:31)
[2025-01-08] MEDS: RINGERS LACTATED 1000 ML 1,000 ML 80 ML IV (09:31)
[2025-01-08] MEDS: LEVOFLOXACIN 250 MG TABLET 500 MG PO (09:32)
[2025-01-08 09:53] LABS: Amphetamine/Methamp Scrn,U Negative (Negative); Barbiturate Screen,Urine Negative (Negative); Benzodiazepines Screen,Urine Negative (Negative); Benzoylecgonine Screen, Ur Positive (Negative); Fentanyl Screen,Urine Negative (Negative); Opiate Screen,Urine Negative (Negative); THC Screen,Urine Positive (Negative)
--- NOTE | 2025-01-08 11:09 | PC.NURSE ---
Patient to CT via wheelchair accompanied by staff.
--- NOTE | 2025-01-08 11:22 | PC.CC ---
Request from JC Marcos, for PA on [employer] 3 Plus sensors. Submitted and approved until 01/08/26.
--- NOTE | 2025-01-08 11:25 | PC.NURSE ---
Patient back from CT accompanied by staff.
[2025-01-08] MEDS: INSULIN LISPRO (AdmeLOG) 1 UNIT/0.01 ML UNIT 6 UNIT SC ×2 (11:50→17:26)
[2025-01-08] MEDS: AMOXICILLIN/POT CLAV 875 TABLET 1 TAB PO ×2 (14:48→20:23)
--- NOTE | 2025-01-08 15:12 | PD.RESPRO ---
Documentation for date of: 01/08/25 Subjective Subjective Interval history: Overnight, reported during sign out that pat was having pus from outer ear with mild pain. Oral antibiotics started. Continue to adjust insulin requirements after DKA ICU admission. Crisis prevention team pending. Exam Vital Signs Temp Pulse Resp BP Pulse Ox O2 Del Method 97.6 F 70 18 122/63 97 Room Air 01/08/25 07:58 01/08/25 13:01 01/08/25 07:58 01/08/25 07:58 01/08/25 07:58 01/08/25 07:58 Narrative Exam General Appearance: Alert & Oriented X3, well-nourished male who is lying in bed in no acute distress HEENT: Skull symmetrical and atraumatic. Conjunctivae pin and moist. Pupils equal, round, reactive to light and accommodation (PERRL). External ear without lesion or discharge. Straight, nares patient, mucosa pink, no discharge. No thyroid nodule appreciated. No cervical lymphadenopathy. Cardio: Normal Rate and Rhythm with S1 and S2 heart sounds. No murmurs or extra heart sounds auscultated. No bruits on carotid auscultation. No peripheral edema or cyanosis. Lungs: Symmetric with good expansion. Chest and back non-tender. Breath sounds vesicular without crackles, wheezing or rhonchi Abdomen: Non-tender, Non-distended, Normal Reactive Bowel Sounds Neuro: Alert, cooperative, oriented to person, place, and time. Speech clear. CN grossly intact. Upper motor strength 5/5 and Lower motor strength 5/5. Sensation intact. Objective Labs 01/09/25 05:06 01/09/25 05:06 Labs: Laboratory Results - last 24 hr 01/08/25 01/08/25 05:54 09:15 WBC 7.0 D RBC 5.04 Hgb 13.4 L Hct 37.5 L MCV 74 L MCH 26.6 MCHC 35.7 RDW Std Deviation 39.6 Plt Count 213 D Neut % (Auto) 59 Lymph % (Auto) 33 [place] % (Auto) 7 Eos % (Auto) 0 Baso % (Auto) 0 Neut # (Auto) 4.1 Lymph # (Auto) 2.3 [place] # (Auto) 0.5 Eos # (Auto) 0.0 Baso # (Auto) 0.0 Immature Gran # (Auto) 0.01 H Absolute Nucleated RBC 0.00 Immature Gran % 0 Nucleated RBC % 0 Sodium 138 Potassium 3.1 L D Chloride 104 Carbon Dioxide 21.4 Anion Gap 13 BUN 13 Creatinine 0.8 Estim Creat Clear Calc 129.0 eGFR > 60 BUN/Creatinine Ratio 16 Glucose 228 H Calculated Osmolality 282 Calcium 8.9 Corrected Calcium 8.9 Phosphorus 2.4 Magnesium 2.0 Total Bilirubin 0.9 AST 11 ALT 9 L Alkaline Phosphatase 72 Total Protein 6.6 Albumin 4.3 Globulin 2.3 Albumin/Globulin Ratio 1.9 Urine Opiates Screen Negative Urine Fentanyl Screen Negative Ur Barbiturates Screen Negative U Amphetamin/Meth Scrn Negative U Benzodiazepines Scrn Negative U Cocaine Metab Screen Positive A U Marijuana (THC) Screen Positive A ABG Interpretation ABG results: 01/06/25 01/06/25 01/07/25 21:46 23:05 02:17 ABG pH 7.02 L* ABG pCO2 9 L* ABG pO2 139 H ABG HCO3 2 L* ABG O2 Saturation 98 ABG Base Excess -26 L VBG pH 6.93 L 7.16 L VBG pCO2 22 L 26 L VBG pO2 53 24 D VBG Base Excess -27 L -18 L 01/07/25 01/07/25 08:00 12:38 ABG pH ABG pCO2 ABG pO2 ABG HCO3 ABG O2 Saturation ABG Base Excess VBG pH 7.35 7.36 VBG pCO2 26 L 29 L VBG pO2 82 H D 139 H D VBG Base Excess -10 L -7 L Quality Measures Quality Measures sepsis Current suspected stage: ruled out Possible source: pulmonary and GI tract/intra-abdominal Blood cultures ordered: yes Antibiotic ordered: No and none Assessment & Plan Assessment Current Active Medications: Generic Name Dose Route Start Last Admin Trade Name Freq PRN Reason Stop Dose Admin Acetaminophen 650 mg 01/08/25 08:25 Acetaminophen 325 Mg Tablet PO 02/05/25 22:50 Q6H PRN Pain 1-3 or Fever >100.3 Amoxicillin/Clavulanate Potassium 1 tab 01/08/25 14:45 01/08/25 14:48 Amoxicillin/Pot Clav 875 Tablet PO 01/15/25 14:44 1 tab BID GRIFFIN Administration Dextrose 25 ml 01/07/25 13:53 Dextrose 50%-Water Inj 50 Ml Syringe IV 02/06/25 13:52 Q15MIN PRN BG 50-70 responsive npo pt Dextrose 50 ml 01/07/25 13:53 Dextrose 50%-Water Inj 50 Ml Syringe IV 02/06/25 13:52 Q15MIN PRN BG <50 OR BG <70 & pt unresponsive Glucagon 1 mg 01/07/25 13:53 Glucagon Inj 1 Mg Vial IM Q15MIN PRN BG <70, and no IV access Heparin Sodium (Porcine) 5,000 unit 01/07/25 06:00 01/08/25 13:21 Heparin Sod Inj 5000 Unit/Ml Vial SC 01/21/25 05:59 5,000 unit Q8HR GRIFFIN Administration Magnesium Sulfate 2 gm in 50 mls @ 25 mls/hr 01/06/25 22:53 Magnesium Sulfate Ivpb IV 02/05/25 22:52 .Q2H PRN PER DKA PROTOCOL Lactated Ringer's 1,000 mls @ 80 mls/hr 01/08/25 08:55 01/08/25 09:31 Lactated Ringers IV 01/08/25 21:24 80 mls/hr .[id number] ONE Administration Insulin Glargine 30 unit 01/08/25 09:30 01/08/25 09:31 Insulin Glargine (Lantus) 5 Unit/0.05 Ml (Per 5 Units) SC 02/07/25 09:29 30 unit QDAY GRIFFIN Administration Insulin Human Lispro 0 unit 01/07/25 21:00 01/08/25 11:38 Insulin Lispro (Admelog) 1 Unit/0.01 Ml Unit SC 02/06/25 17:59 Not Given ACHS [facility] Protocol Insulin Human Lispro 6 unit 01/08/25 12:00 01/08/25 11:50 Insulin Lispro (Admelog) 1 Unit/0.01 Ml Unit SC 02/07/25 11:59 6 unit TIDWM GRIFFIN Administration Levofloxacin 500 mg 01/08/25 09:30 01/08/25 09:32 Levofloxacin 250 Mg Tablet PO 01/15/25 09:29 500 mg QDAY GRIFFIN Administration Plan Patient is a 29 year old male with a PMH of type I DM, poly substance use disorder, and LOUIE who was admitted directly into the ICU on 01/06/2025 for DKA and cocaine intoxication and downgraded on 01/07/2025. #Diabetes Mellitus type I #Medication Non-adherence #Hyperglycemia #DKA, Resolved Previous hospitalizations for DKA and recent re-admission showing ketones in urine, metabolic acidosis with anion gap of 18 w/ pH of 7.12 with ABG. Patient has not been compliant with insulin regimen and did not follow up on C-peptide as outpatient. Continue monitor fasting glucose and adjust insluin as needed. A1c on admission >14 Plan -Insulin Glargine 30 unites QDay -Lispro 6 units TID -Insulin Sliding scale lispro -Order C-peptide in AM -diabetic education -CGM as outpatient #Suicidal Ideation #LOUIE Patient stated that he relapsed and started using cocaine once again and had been feeling overwhelmed over the past few weeks. Patient consumed an entire bottles of Sertraline, Ondansetron, and famotidine. Denied any having any thought of harming others or selft currently. Plan -Consult social media executive -crisis prevention team. #Polysubstance Use Disorder Patient has a past medical history of poly-substance use disorder, including cocaine and vapes THC. Urine toxicology positive to cocaine and THC. Plan -Follow outpatient -consider psychiatry referral #Metabolic Acidosis, anion gap, resolved Health Maintenance: Disp: Pt is currently admitted to floors for further management of diabetes mellitus type 1 and awaiting social media executive. FEN: Carb consistent low DVT: on subQ heparin Code: Full Code - The patient's plan was discussed with attending Dr. Jordy Verdin MD PGY1 Attending Provider Attestation/Addendum I reviewed labs, imaging, EKG, home medications and prior available records. Face to face evaluation was performed by me. I have personally examined the patient and discussed assessment and plan with the IM team. I reviewed the resident note and agree with the plan with exceptions as below. Suicidal ideation Left ear pain Left ear otitis media Diabetic ketoacidosis Hypokalemia Uncontrolled with hyperglycemia, type I, insulin-dependent Cocaine abuse Medication noncompliance History of generalized anxiety disorder Patient complained of left ear pain. Examination showed oozing from the external canal. Ordered CT scan that showed left otitis media and maxillary sinus disease. Started amoxicillin. Will need crisis team evaluation prior to discharge Increased long-acting insulin. Adjust based on the future fingersticks. Continue insulin with meals. Continue sliding scale insulin. Monitor fingersticks Instructed the patient regarding the importance of avoiding cocaine use Instructed the patient regarding the importance of medication compliance. Discuss with pharmacy/dietitian regarding diabetes education Replete potassium as needed and monitor BMP Resumed home psych medications
--- NOTE | 2025-01-08 15:45 | PC.SS ---
rounding note: Patient remains on med/surg unit. They are monitoring glucose and insulin level. Patient will be ready for d/c by tomorrow per physician. Patient will need to be evaluated by our crisis team
[2025-01-09] VITALS (9 sets, daily range): BP systolic 111–124; BP diastolic 58–75; PULSE 47–69; RESP 12–25; TEMP 36–36.6; O2SAT 97–99; BMI 22.6
[2025-01-09] MEDS: HEPARIN SOD INJ 5000 UNIT/ML VIAL SC ×3 (05:09→21:19)
[2025-01-09 05:58] LABS: Basophils % (Auto) 0 % (0-2.5); Eosinophils % (Auto) 1 % (0-10); Hematocrit 36.3 % (41.0-53.0); Hemoglobin 12.5 g/dL (13.5-16.0); Immature Granulocytes % (Auto) 0 % (0-0); Immature Granulocytes Auto 0.01 Thou/mm3 (0.00-0.00); Lymphocytes # (Auto) 2.6 Thou/mm3 (1.0-4.8); Lymphocytes % (Auto) 56 % (10-50); Mean Corpuscular HGB Conc 34.4 g/dl (31.0-37.0); Mean Corpuscular Hemoglobin 26.7 pg (25.0-35.0); Mean Corpuscular Volume 78 fL (80-100); Monocytes # (Auto) 0.4 Thou/mm3 (0.0-0.8); Monocytes % (Auto) 8 % (0-12); Neutrophils # (Auto) 1.6 Thou/mm3 (1.8-7.7); Neutrophils % (Auto) 34 % (37-80); Nucleated Red Blood Cell % 0 /100 WBC (0); Platelet Count 194 Thou/mm3 (140-440); RDW Standard Deviation 40.7 fL (35.1-43.9); Red Blood Count 4.68 Miln/mm3 (4.50-5.90); White Blood Count 4.7 Thou/mm3 (3.8-10.6)
[2025-01-09 06:36] LABS: Alanine Aminotransferase < 7 U/L (10-49); Albumin, Serum 3.9 gm/dL (3.5-5.0); Alkaline Phosphatase 62 U/L (46-116); Anion Gap 9 (7-16); Aspartate Amino Transferase 10 U/L (0-34); BUN/Creatinine Ratio 20 Ratio (12-20); Bilirubin,Total 0.7 mg/dL (0.3-1.2); Blood Urea Nitrogen 12 mg/dL (9-23); Calcium 8.8 mg/dL (8.3-10.6); Calcium (Corrected) 8.9 mg/dL (8.5-10.1); Carbon Dioxide 23.7 mMol/L (20.0-31.0); Chloride 107 mMol/L (98-107); Creatinine (Component) 0.6 mg/dL (0.6-1.3); Glucose 115 mg/dL (74-106); Magnesium 1.6 mg/dL (1.6-2.6); Osmolality,Calculated 280 (275-295); Phosphorous 3.6 mg/dL (2.4-5.1); Sodium 140 mMol/L (136-145); Total Protein 5.9 gm/dL (5.7-8.2); eGFR > 60 See Note
[2025-01-09] MEDS: INSULIN GLARGINE (Lantus) 5 UNIT/0.05 ML (PER 5 UNITS) 30 UNIT SC (08:14)
[2025-01-09] MEDS: INSULIN LISPRO (AdmeLOG) 1 UNIT/0.01 ML UNIT 6 UNIT SC (08:16)
[2025-01-09] MEDS: POTASSIUM CHLORIDE 10% 20 MEQ/15 ML UDC 40 MEQ PO (09:28)
[2025-01-09] MEDS: AMOXICILLIN/POT CLAV 875 TABLET 1 TAB PO ×2 (09:28→20:12)
--- NOTE | 2025-01-09 09:44 | PC.CC ---
DM education given by Carolina, Travel Services Professional. Note is as follows: Provided diabetes education to the patient, explaining the differences between Type 1 and Type 2 diabetes, and discussing the possibility of either diagnosis for his condition. I also informed the patient about the potential need for insulin therapy, to which he noted that he has been on insulin in the past. I inquired about the patient's previous methods for measuring blood glucose, and he reported using a CGM, stating that he is familiar with how to apply and use the device. When asked about patterns he observed while using the CGM, the patient mentioned that his blood glucose levels typically remained below 180 mg/dL during the week, but occasionally rojelio to 280 mg/dL on weekends due to family dinners and dining out. The patient expressed his intention to return to the gym and resume dieting in an effort to lower his A1c to below 7%.
[2025-01-09] MEDS: INSULIN LISPRO (AdmeLOG) 1 UNIT/0.01 ML UNIT 8 UNIT SC ×2 (12:08→17:29)
--- NOTE | 2025-01-09 12:26 | PC.SS ---
Medical team has requested a mental health evaluation for the patient. Per medical team and attending Dr. Spence the patient has been medically cleared for an evaluation. Patient is a 29 year-old male who presented to the ED initially for feeling sick, shaky and not taking insulin. While being evaluated by our medical staff, the patient reported suicide ideation with plan and intent. [place] met with patient [id number] to complete assessment. ASW introduced self, role, and reason for assessment. ASW disclosed limits of confidentiality as well. Patient appeared alert and oriented to self, place, and situation. Patient was pleasant and cooperative during the assessment. Patient?s thought process was linear and organized. No signs of delusions, paranoia or visual hallucinations observed. Assessment was completed in Gren[place] as this is the patient's primary language. Patient informs he lives at home with his father, Forrest Borges . Patient confirmed demographic information. Patient reports he is able to ambulate independently and complete his own ADL?s. Patient identified his father as his emergency contact. Patient reports being unemployed with no current income. Patient reports he was brought into the ED on Monday01/06/25, by his brother, Seth Borges as his brother noted him to not looking good . Per patient, his brother Seth told him he looked pale and pupils appeared to be dilated. Patient was asked what transpired during the time and what his understanding of what happened was. Per patient, he admits to a suicide attempted on Monday01/05/25. Patient reports he consumed cocaine and marijuana. Additionally, patient reports that he consumed about 30-40 pills of Sertraline, Famotidine, and Ondariseton. Patient reports intention of ending his life as he has been dealing with a lot of stress with not having employment, having to pay child support and upcoming rent due with no money to pay his bills. Patient reports that is what triggered his suicide attempt. Per patient he did not disclose this information to family or friends, he kept the information to himself. Patient admits to relapse of cocaine and marijuana, reports he had been sober for six months, however due to the stress he was dealing with he relapsed. Patient reports history of depression and anxiety. Patient states he takes Sertaline to help manage his depression. Patient states his PCP Radha Rojo at the [facility], in [place] who is the prescribing provider for the medication. Patient denies that he is connected to mental health services or substance use services at this time. Per patient, he denies homicidal ideation. Patient also denies audio or visual hallucinations. Patient denied past suicidal attempts. Patient denies ever being placed on a 5150-hold. Patient provided verbal consent to speak to his brother, Seth and father Forrest for collateral information. Off note, [place] Scale screening was completed and patient scored high risk. Patient's toxicology currently positive for cocaine and THC. During this encounter, the patient noted to be smiling appears to be nonchalant about the circumstances that led him to the hospital and does not appear to be understanding the severity of his behavior. Collateral contact to patient's brother, Seth Borges . In speaking with Seth he informs he brought patient in to the Emergency Department because he was noted to be pale . Seth reports he believes the patient has been dealing with some problems and stress. When asked further Seth disclosed that the patient had a girlfriend by the name of 'Amy' who consumes of drugs . Per Seth, Amy ended the relationship with the patient and believes this is what triggered the patient with the inclusion of being unemployed and stressed about paying child support and additional home bills. Per Seth, he does believe this was a suicide attempt and states the patient had a previous attempt about eights years ago in [place], attempting to choke self. Per Seth, he believes the patient needs more help to help address his mental health and substance use issues, denies a safety plan could be coordinated. After clinical consultation with Shannon BARAKAT it was decided that the patient meets criteria for a 5150 Hold for danger to self. Patient was provided with advisement and agreeable notifying family. Patient's brother Seth was notified, bed side nurse and attending Dr. Spence all provided with update. Patient is pending LPS placement at this time.
--- NOTE | 2025-01-09 14:32 | PD.RESDS ---
Planned Discharge Date 01/09/25 DS: Providers Provider Date of admission: 01/06/25 22:51 Primary care physician: Physician No Primary/Family Admitting Provider: Lino Bailey MD Attending Provider on Admission: John Spence MD Consults: 01/06/25 22:53 Referral Registered Dietitian Routine Comment: Attending Provider on DC: Radha Verdin MD Discharging Provider: Radha Verdin MD DS: Diagnosis Problem List Completed Was Problem List Reviewed/Reconciled?: Yes Hospital Course Hospital Course Hospital course: Summary: Patient is a 29 year old male with a [facility] diabetes mellitus type II, poly substance use disorder, and LOUIE who was admitted directly into the ICU on 01/06/2025 for DKA and cocaine intoxication then downgraded on 01/07/2025. ER Course: In the ER, vitals significant for hypertension, tachycardia and tachypnea. Sepsis alert was called. Labs show leukocytosis, hyponatremia, hyperkalemic at 6.7 and AGMA with CO2 < 10 and hyperglycemic at 691. Hospital Course: Patient is a 29-year-old male with a past medical history of diabetes mellitus type 2, polysubstance use disorder, cocaine use disorder, and history of generalized anxiety disorder on Sertraline and buspirone. Patient was initially admitted into the ICU on January 06, 2025 secondary to diabetic ketoacidosis with hyperglycemia 691, beta hydroxybutyrate 5.1, with metabolic acidosis high anion gap and was started on insulin drip. Anion gap closed and patient was downgraded to floors on January 07, 2025. Insulin regimen while in hospital, patient started on Glargine 40 units qday, Lisrpo 6 units with meal, and sliding scale. Patient would benefit from continuous glucose monitoring and endocrinology referral. A1c >14.0. While on floors, patient stated he was having suicidal ideation and attempted to commit suicide by consuming an entire bottle of sertraline, famotidine, and omeprazole. In addition, patient test positive fro cocaine and THC. Patient is medically cleared and would benefit from psychiatric evaluation. Instructions: -Please continue Insulin Glargine 40 units at night & Insulin Lispro 8 units with each meal for diabetes mellitus type 2 -Please check your blood sugar in the morning and prior to meals for a total of 4 times daily -Blood sugar goal of 80-130 in the morning and after meals blood sugar under 200 -Continue the rest of your medications as prescribed -Please follow up with endocrinology, Dr. Gonsalez, for diabetes mellitus type 2 -Please follow up with your primary care provider within one week of discharge -If your symptoms worsen,please seek immediate medical attention and return to your nearest emergency room -If you do not have a primary care provider, you [facility] [address], [place] [address], #Diabetes Mellitus type II #Hyperglycemia, resolved #DKA, Resolved #Suicidal Ideation #LOUIE #Polysubstance Use Disorder #Metabolic Acidosis, anion gap, resolved - The patient's plan was discussed with attending Dr. Jordy Verdin MD PGY1 Internal Medicine Time Spent with Patient Time attestation: Total time spent providing and/or coordinating discharge services: at least thirty minutes of care and coordination Time spent: Greater than 30 minutes Exam Vital Signs Temp Pulse Resp BP Pulse Ox O2 Del Method 97.8 F 66 12 124/70 97 Room Air 01/09/25 11:52 01/09/25 11:52 01/09/25 11:52 01/09/25 11:52 01/09/25 11:52 01/09/25 11:52 Narrative Exam General Appearance: Alert & Oriented X3, well-nourished male who is lying in bed in no acute distress HEENT: Skull symmetrical and atraumatic. Conjunctivae pink and moist. Pupils equal, round, reactive to light and accommodation (PERRL). External ear without lesion or discharge. Straight, nares patient, mucosa pink, no discharge. No thyroid nodule appreciated. No cervical lymphadenopathy. Cardio: Normal Rate and Rhythm with S1 and S2 heart sounds. No murmurs or extra heart sounds auscultated. No bruits on carotid auscultation. No peripheral edema or cyanosis. Lungs: Symmetric with good expansion. Chest and back non-tender. Breath sounds vesicular without crackles, wheezing or rhonchi Abdomen: Non-tender, Non-distended, Normal Reactive Bowel Sounds Neuro: Alert, cooperative, oriented to person, place, and time. Speech clear. CN grossly intact. Upper motor strength 5/5 and Lower motor strength 5/5. Sensation intact. Discharge Plan Plan Patient Disposition: HOME (Self Care) Patient condition on transfer: Stable Care Plan Goals: Instructions: -Please continue Insulin Glargine 40 units at night & Insulin Lispro 8 units with each meal for diabetes mellitus type 2 -Please check your blood sugar in the morning and prior to meals for a total of 4 times daily -Blood sugar goal of 80-130 in the morning and after meals blood sugar under 200 -Continue the rest of your medications as prescribed -Please follow up with endocrinology, Dr. Gonsalez, for diabetes mellitus type 2 -Please follow up with your primary care provider within one week of discharge -If your symptoms worsen,please seek immediate medical attention and return to your nearest emergency room -If you do not have a primary care provider, you may follow up at the [facility] at [address] [place] [address] [address], [place] [address], Prescriptions/Referrals Prescriptions/Med Rec: New (DME) FreeStyle Ramya 3 Plus Sensor Device See Rx Instructions .Route Qty: 2 0RF Rx Instructions: As directed (DME) pen needle, diabetic 29 gauge needle See Rx Instructions .Route Qty: 100 0RF Rx Instructions: As directed-up to four times a day insulin glargine 100 unit/mL (3 mL) insulin pen 40 unit subcut QPM 60 Days Qty: 24 0RF insulin lispro 100 unit/mL insulin pen 8 unit subcut TID 60 Days Qty: 14.4 0RF (DME) FreeStyle Ramya 3 [place] Misc See Rx Instructions .Route Qty: 1 0RF Rx Instructions: As directed Continued famotidine 40 mg tablet 40 mg PO QDAY Qty: 14 0RF buspirone 5 mg tablet 5 mg PO BID Qty: 60 5RF sertraline 50 mg tablet 50 mg PO QDAY MDD 50 mg Qty: 30 5RF (DME) pen needle, diabetic 32 gauge x 1/4 needle See Rx Instructions .Route Qty: 100 0RF Rx Instructions: As directed (DME) FreeStyle Ramya 3 Sensor Device See Rx Instructions .Route Qty: 1 0RF Rx Instructions: As directed Discontinued ondansetron 4 mg tablet,disintegrating 4 mg PO Q6H PRN (Reason: nausea and vomiting) Qty: 14 0RF insulin lispro [Admelog SoloStar U-100 Insulin] 100 unit/mL insulin pen 5 unit subcut TID Qty: 15 0RF Referrals: Gayle Gonsalez MD [Physician] - No Primary/Family,Physician [Primary Care Provider] - Patient/Caregiver Discharge Instructions Education Materials: CGM, Diabetes: Activity Tips, Ketoacidosis Ch Print Language: [place]rugu[place] Stand Alone Forms: [employer] Award Info., Patient Portal Info Letter Discharge Order Discharge Orders: Discharge (Routine); Ordered 01/09/25 Ordered By: Radha Verdin Quality Discharge Quality Measures VTE prophylaxis MD Attestestation MD Attestation I reviewed labs, imaging, EKG, home medications and prior available records. Face to face evaluation was performed by me. I have personally examined the patient and discussed assessment and plan with the IM team. I reviewed the resident note and agree with the plan with exceptions as below. Suicidal ideation Left ear pain Left ear otitis media Diabetic ketoacidosis Hypokalemia Uncontrolled with hyperglycemia, type I, insulin-dependent Cocaine abuse Medication noncompliance History of generalized anxiety disorder Patient complained of left ear pain. Examination showed oozing from the external canal. Ordered CT scan that showed left otitis media and maxillary sinus disease. Started amoxicillin. Increased long-acting insulin. Adjust based on the future fingersticks. Continue insulin with meals. Continue sliding scale insulin. Monitor fingersticks Instructed the patient regarding the importance of avoiding cocaine use Instructed the patient regarding the importance of medication compliance. Discuss with pharmacy/dietitian regarding diabetes education Replete potassium as needed and monitor BMP Resumed home psych medications He is medically cleared for discharge Evaluated by crisis team: Recommended transfer to a psych facility given his active suicidal thoughts and suicidal attempt with overdosing of sertraline/famotidine. Discussed with manager social work who is working on the transfer Time spent is 40 minutes. More than 50% of the time was spent on patient education and coordination of care.
--- NOTE | 2025-01-09 16:44 | PC.SS ---
SS update: [facility] is reviewing, consulting with their medical doctor if able to accept.
--- NOTE | 2025-01-09 17:22 | PC.CC ---
[place] with [facility] reports medical doctor is reviewing packet for placement. Mechanical Operator informed [place] to please call [phone] is they are able to accept.
--- NOTE | 2025-01-09 17:24 | PC.CC ---
[facility] PAC Team reports they would have to present the patient to their Charge Nurse and will make contact with ASW if they are able to accept the patient.
--- NOTE | 2025-01-09 18:15 | PC.CC ---
1813 [facility] called and reported they are at capacity at this time and will keep patient in their queue.
[2025-01-10] VITALS: BP 123/68; PULSE 61; RESP 18; TEMP 36.2; O2SAT 98
[2025-01-10 04:00] VITALS: BP 127/65; PULSE 63; RESP 18; TEMP 36.3; O2SAT 98
--- NOTE | 2025-01-10 04:06 | PC.NURSE ---
Received a call from [facility] of [facility]. She will call back again for further information regarding the pt.
[2025-01-10 06:00] VITALS: BMI 22.4
[2025-01-10] MEDS: HEPARIN SOD INJ 5000 UNIT/ML VIAL SC ×2 (06:07→13:58)
[2025-01-10 07:31] VITALS: BP 119/67; PULSE 60; RESP 15; TEMP 36.4; O2SAT 99
--- NOTE | 2025-01-10 07:33 | PC.CC ---
[facility] declined patient.
--- NOTE | 2025-01-10 07:33 | PC.CC ---
[facility] resubmitted packet via [employer].
[2025-01-10 08:00] VITALS: PULSE 60
[2025-01-10] MEDS: INSULIN LISPRO (AdmeLOG) 1 UNIT/0.01 ML UNIT 8 UNIT SC ×3 (08:10→17:08)
[2025-01-10] MEDS: INSULIN GLARGINE (Lantus) 5 UNIT/0.05 ML (PER 5 UNITS) 40 UNIT SC (08:12)
[2025-01-10] MEDS: AMOXICILLIN/POT CLAV 875 TABLET 1 TAB PO (09:07)
--- NOTE | 2025-01-10 10:45 | PD.RESDS ---
Planned Discharge Date 01/10/25 DS: Providers Provider Date of admission: 01/06/25 22:51 Primary care physician: Physician No Primary/Family Admitting Provider: Lino Bailey MD Attending Provider on Admission: John Spence MD Consults: 01/06/25 22:53 Referral Registered Dietitian Routine Comment: Attending Provider on DC: Radha Verdin MD Discharging Provider: Radha Verdin MD DS: Diagnosis Problem List Completed Was Problem List Reviewed/Reconciled?: Yes Hospital Course Hospital Course Hospital course: Patient failed discharge yesterday, as he was pending transfer to psychiatry facility, patient will discharge today 01/10/2025. Summary: Patient is a 29 year old male with a H diabetes mellitus type II, poly substance use disorder, and LOUIE who was admitted directly into the ICU on 01/06/2025 for DKA and cocaine intoxication then downgraded on 01/07/2025. ER Course: In the ER, vitals significant for hypertension, tachycardia and tachypnea. Sepsis alert was called. Labs show leukocytosis, hyponatremia, hyperkalemic at 6.7 and AGMA with CO2 < 10 and hyperglycemic at 691. Hospital Course: Patient is a 29-year-old male with a past medical history of diabetes mellitus type 2, polysubstance use disorder, cocaine use disorder, and history of generalized anxiety disorder on Sertraline and buspirone. Patient was initially admitted into the ICU on January 06, 2025 secondary to diabetic ketoacidosis with hyperglycemia 691, beta hydroxybutyrate 5.1, with metabolic acidosis high anion gap and was started on insulin drip. Anion gap closed and patient was downgraded to floors on January 07, 2025. Insulin regimen while in hospital, patient started on Glargine 40 units qday, Lisrpo 6 units with meal, and sliding scale. Patient would benefit from continuous glucose monitoring and endocrinology referral. A1c >14.0. While on floors, patient stated he was having suicidal ideation and attempted to commit suicide by consuming an entire bottle of sertraline, famotidine, and omeprazole. In addition, patient test positive fro cocaine and THC. Patient is medically cleared and would benefit from psychiatric evaluation. Instructions: -Please continue Insulin Glargine 40 units at night & Insulin Lispro 8 units with each meal for diabetes mellitus type 2 -Please check your blood sugar in the morning and prior to meals for a total of 4 times daily -Blood sugar goal of 80-130 in the morning and after meals blood sugar under 200 -Continue the rest of your medications as prescribed -Please follow up with endocrinology, Dr. Gonsalez, for diabetes mellitus type 2 -Please follow up with your primary care provider within one week of discharge -If your symptoms worsen,please seek immediate medical attention and return to your nearest emergency room -If you do not have a primary care provider, you may follow up at the [facility] at [address] [place] [address] [address], [place] [address], #Diabetes Mellitus type II #Hyperglycemia, resolved #DKA, Resolved #Suicidal Ideation #left ear pain #left ear otitis media #LOUIE #Polysubstance Use Disorder #Metabolic Acidosis, anion gap, resolved - The patient's plan was discussed with attending Dr. Jordy Verdin MD PGY1 Internal Medicine Time Spent with Patient Time attestation: Total time spent providing and/or coordinating discharge services: at least 30 minutes of care and coordination Time spent: Greater than 30 minutes Exam Vital Signs Temp Pulse Resp BP Pulse Ox O2 Del Method 97.6 F 60 15 119/67 99 Room Air 01/10/25 07:31 01/10/25 07:31 01/10/25 07:31 01/10/25 07:31 01/10/25 07:31 01/10/25 07:31 Narrative Exam General Appearance: Alert & Oriented X3, well-nourished male who is lying in bed in no acute distress HEENT: Skull symmetrical and atraumatic. Conjunctivae pink and moist. Pupils equal, round, reactive to light and accommodation (PERRL). External ear without lesion or discharge. Straight, nares patient, mucosa pink, no discharge. No thyroid nodule appreciated. No cervical lymphadenopathy. Cardio: Normal Rate and Rhythm with S1 and S2 heart sounds. No murmurs or extra heart sounds auscultated. No bruits on carotid auscultation. No peripheral edema or cyanosis. Lungs: Symmetric with good expansion. Chest and back non-tender. Breath sounds vesicular without crackles, wheezing or rhonchi Abdomen: Non-tender, Non-distended, Normal Reactive Bowel Sounds Neuro: Alert, cooperative, oriented to person, place, and time. Speech clear. CN grossly intact. Upper motor strength 5/5 and Lower motor strength 5/5. Sensation intact. Discharge Plan Plan Patient Disposition: HOME (Self Care) Patient condition on transfer: Stable Care Plan Goals: Instructions: -Please continue Insulin Glargine 40 units at night & Insulin Lispro 8 units with each meal for diabetes mellitus type 2 -Please check your blood sugar in the morning and prior to meals for a total of 4 times daily -Blood sugar goal of 80-130 in the morning and after meals blood sugar under 200 -Please follow up with endocrinology, Dr. Gonsalez, for diabetes mellitus type 2 -Continue the rest of your medications as prescribed -Please follow up with your primary care provider within one week of discharge -If your symptoms worsen,please seek immediate medical attention and return to your nearest emergency room -If you do not have a primary care provider, you may follow up at the [facility] at [address] [place] [address] [address], [place] [address], Prescriptions/Referrals Prescriptions/Med Rec: New (DME) FreeStyle Ramya 3 Plus Sensor Device See Rx Instructions .Route Qty: 2 0RF Rx Instructions: As directed (DME) pen needle, diabetic 29 gauge needle See Rx Instructions .Route Qty: 100 0RF Rx Instructions: As directed-up to four times a day insulin glargine 100 unit/mL (3 mL) insulin pen 40 unit subcut QPM 60 Days Qty: 24 0RF insulin lispro 100 unit/mL insulin pen 8 unit subcut TID 60 Days Qty: 14.4 0RF (DME) FreeStyle Ramya 3 [place] Misc See Rx Instructions .Route Qty: 1 0RF Rx Instructions: As directed Continued famotidine 40 mg tablet 40 mg PO QDAY Qty: 14 0RF buspirone 5 mg tablet 5 mg PO BID Qty: 60 5RF sertraline 50 mg tablet 50 mg PO QDAY MDD 50 mg Qty: 30 5RF (DME) pen needle, diabetic 32 gauge x 1/4 needle See Rx Instructions .Route Qty: 100 0RF Rx Instructions: As directed (DME) FreeStyle Ramya 3 Sensor Device See Rx Instructions .Route Qty: 1 0RF Rx Instructions: As directed Discontinued ondansetron 4 mg tablet,disintegrating 4 mg PO Q6H PRN (Reason: nausea and vomiting) Qty: 14 0RF insulin lispro [Admelog SoloStar U-100 Insulin] 100 unit/mL insulin pen 5 unit subcut TID Qty: 15 0RF Referrals: Gayle Gonsalez MD [Physician] - No Primary/Family,Physician [Primary Care Provider] - Patient/Caregiver Discharge Instructions Education Materials: CGM, Diabetes: Activity Tips, Ketoacidosis Ch Print Language: [place] Stand Alone Forms: [employer] Award Info., Patient Portal Info Letter Discharge Order Discharge Orders: Discharge (Routine); Ordered 01/09/25 Ordered By: Radha Verdin Quality Discharge Quality Measures VTE prophylaxis MD Attestestation MD Attestation I reviewed labs, imaging, EKG, home medications and prior available records. Face to face evaluation was performed by me. I have personally examined the patient and discussed assessment and plan with the IM team. I reviewed the resident note and agree with the plan with exceptions as below. Suicidal ideation Left ear pain Left ear otitis media Diabetic ketoacidosis Hypokalemia Uncontrolled with hyperglycemia, type I, insulin-dependent Cocaine abuse Medication noncompliance History of generalized anxiety disorder Patient complained of left ear pain. Examination showed oozing from the external canal. Ordered CT scan that showed left otitis media and maxillary sinus disease. Started Augmentin Increased long-acting insulin. Adjust based on the future fingersticks. Continue insulin with meals. Continue sliding scale insulin. Monitor fingersticks Instructed the patient regarding the importance of avoiding cocaine use Instructed the patient regarding the importance of medication compliance. Discuss with pharmacy/dietitian regarding diabetes education Replete potassium as needed and monitor BMP Resumed home psych medications He is medically cleared for discharge Evaluated by crisis team: Recommended transfer to a psych facility given his active suicidal thoughts and suicidal attempt with overdosing of sertraline/famotidine. Discussed with licensed social worker who is working on the transfer Time spent is 40 minutes. More than 50% of the time was spent on patient education and coordination of care.
--- NOTE | 2025-01-10 11:41 | PC.CC ---
[facility] spoke to [facility] who stated they reccieved a packet for the patient. Per Q they currently do not have any appropriate beds so patient will remain in queue.
[2025-01-10 12:00] VITALS: BP 109/64; PULSE 52; PULSE 61; RESP 18; TEMP 36.5; O2SAT 98
--- NOTE | 2025-01-10 13:18 | PC.CC ---
1312 Spoke to Presley at [facility] who stated patient had been declined. 1309 Spoek to Camryn at [facility] who stated she did not have record of referral. She advised to re-fax. Referral was re-faxed to fax number [phone]. 1306 Spoke to Caridad at [facility] and she stated patient was declined due to medical fit for diagnosis of DM1. 1304 Spoke to Ellie at [facility] and she stated that patient was still in queue.
--- NOTE | 2025-01-10 15:20 | PC.CC ---
Patient was accepted to [facility] in [place] by Dr. Cuco Douglas into [address]. ASW provided accepting information to nabeel
--- NOTE | 2025-01-10 15:25 | PC.CC ---
Patient was accepted into [facility] in [place], Nurse Trinity provided accepting information, Dr. Cuco Douglas accepted patient into [address]. Nurse to Nurse number [phone]. ASW provided accepting information to YESSENIA Mclean. ASW to arrange transportation. ASW provided accepting information to patient.
[2025-01-10 16:00] VITALS: BP 117/67; PULSE 65; PULSE 68; RESP 18; TEMP 36.6; O2SAT 95
--- NOTE | 2025-01-10 17:00 | PC.SS ---
LITERACY TUTOR received update that patient has been accepted to [facility]. Transport scheduled for 18:00 today.
[2025-01-10] MEDS: INSULIN LISPRO (AdmeLOG) 1 UNIT/0.01 ML UNIT SC (17:07)
[2025-01-13 06:46] LABS: C-Peptide* 0.34 ng/mL (0.80-3.85)
== END 2025-01-10 18:45 | DRG 817 ==
LOC: SERX 22:39 → SERHOLD 23:35 → S2SX 01-07 01:49 → S3SX 01-07 22:54
PROVIDERS: Physician Assistant; Student in an Organized Health Care Education/Training Program; Admitting Provider Student in an Organized Health Care Education/Training Program; Emergency Provider Emergency Medicine; Visit Provider Student in an Organized Health Care Education/Training Program
DX: T43.222A Poisoning by selective serotonin reuptake inhibitors, intentional self-harm, initial encounter (principal); T47.0X2A Poisoning by histamine H2-receptor blockers, intentional self-harm, initial encounter; T47.1X2A Poisoning by other antacids and anti-gastric-secretion drugs, intentional self-harm, initial encounter; N17.9 Acute kidney failure, unspecified; E87.5 Hyperkalemia; E87.1 Hypo-osmolality and hyponatremia; T38.3X6A Underdosing of insulin and oral hypoglycemic [antidiabetic] drugs, initial encounter; G92.8 Other toxic encephalopathy; G93.41 Metabolic encephalopathy; R65.10 Systemic inflammatory response syndrome (SIRS) of non-infectious origin without acute organ dysfunction; E86.0 Dehydration; E11.10 Type 2 diabetes mellitus with ketoacidosis without coma; F41.1 Generalized anxiety disorder; F12.10 Cannabis abuse, uncomplicated; F14.129 Cocaine abuse with intoxication, unspecified; I10 Essential (primary) hypertension; R74.8 Abnormal levels of other serum enzymes; E87.6 Hypokalemia; H66.92 Otitis media, unspecified, left ear; Z79.4 Long term (current) use of insulin; Z87.891 Personal history of nicotine dependence; Z91.148 Patient's other noncompliance with medication regimen for other reason
CPT/HCPCS: 36415; 36600; 70487; 71045; 74176; 80048; 80053; 80061; 80069; 80307; 80329; 81001; 82010; 82803; 83036; 83605; 83690; 83735; 84100; 84145; 84484; 84681; 85025; 85610; 85730; 87040; 87081; 87086; 93005; 93225; 96127; 96360; 96361; 99291; A4649; J0613; J1643; J1815; J3480; J7030; J7120; J7121; Q9967; A9270; G0480

== ENCOUNTER 2025-01-22 15:12 | Outpatient (AMB) | payer MEDICAID, SELFPAY ==
--- NOTE | 2025-01-22 15:20 | ACNOTE_ITS ---
Vital Signs 01/22/25 15:21 Weight 78.925 kg Weight Measurement Method Standing Scale BP 128/64 Blood Pressure Source Automatic Cuff Blood Pressure Location Right Upper Arm Position Sitting Respiration 18 Pulse 100 Pulse Source Monitor Temp 97.8 F Temp Source Temporal Artery Scan Pulse Oximetry (%) 96 Oxygen Delivery Method Room Air Allergies/Meds Allergies & Medications Allergies No Known Allergies Allergy (Verified 01/22/25 15:21) Medication Reconciliation sertraline 50 mg tablet 50 mg PO QDAY #30 tabs 10/30/24 [Rx Confirmed 01/22/25] famotidine 40 mg tablet 40 mg PO QDAY dyspepsia #14 tabs 11/29/24 [Rx Confirmed 01/22/25] 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 sensor (FreeStyle Ramya 3 Sensor device) #1 ea 12/02/24 [Rx Confirmed 01/22/25] pen needle, diabetic 32 gauge x 1/4 #100 ea 12/02/24 [Rx Confirmed 01/22/25] 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 sensor (FreeStyle Ramya 3 Plus Sensor device) #2 ea 01/08/25 [Rx Confirmed 01/22/25] pen needle, diabetic 29 gauge #100 ea 01/08/25 [Rx Confirmed 01/22/25] 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,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,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 (FreeStyle Ramya 3 [place]) #1 ea 01/09/25 [Rx Confirmed 01/22/25] buspirone 5 mg tablet 5 mg PO BID anxiety #60 tabs 01/28/25 [Rx] insulin glargine 100 unit/mL (3 mL) subcutaneous pen 40 unit (0.4 mL) subcut QPM diabetes mellitus type 2 60 days #24 mL 01/28/25 [Rx] insulin lispro 100 unit/mL subcutaneous pen 8 unit (0.08 mL) subcut TID Diabetes Mellitus Type 2 60 days #14.4 mL 01/28/25 [Rx] MA Intake Visit Data Collection New Patient or Established: Established Patient (seen at [facility] within 3 years) Seen by Clinical Staff ONLY (RN/MA): No Pain Present Currently: No Pain scale:: 0 Pain Scale Used: Pavon-Naylor/Numerical Training Professional Required: No PCP or OBGYN visit in last 3 months: No Hx Now: No Do You Feel Safe at Home: Yes Authorities Contacted: N/A Smoking Status Smoking Status: Former smoker Immunization / Flu Flu Vaccine in the Last 12 Months: No Flu Vaccine Exclusion Criteria: No Exclusion Criteria Past Medical History Past Medical History NEUROLOGIC: Negative Neurological Disorders CARDIAC: Negative Cardiac Disorders or Congestive Heart Failure RESPIRATORY: Negative Chronic Obstructive Pulmonary Disease (COPD) or Asthma GASTROINTESTINAL: Negative Gastrointestinal Disorders or Hepatitis GENITOURINARY: Negative Genitourinary Disorders or Renal Disease ENDOCRINE: Positive Endocrine Disorders and Diabetes Mellitus Type 2; Negative Diabetes Mellitus Type 1 HEMATOLOGIC: Negative Blood Disorders or Sickle Cell Disease PSYCHO/SOCIAL: Positive Depression and Anxiety OTHER HISTORY: Negative Autoimmune Disease, Human Immunodeficiency Virus (HIV), Chicken Pox, Measles, Mumps, Rubella (Al[place]ian Measles), Pertussis, Clostridium Difficile or Cancer Surgical History SURGICAL: Negative Nephrectomy or Joint Replacement Social History SMOKING STATUS: Smoking status: Former smoker SECOND HAND EXPOSURE: second hand exposure: No ALCOHOL: Alcohol Intake: Never HOUSING: Housing: House LIVES WITH: Lives With: Family Patient Portal Questionaires PHQ-9 PHQ-2 Over the last 2 weeks, how often have you been bothered by any of the following problems? 1. Little interest or pleasure in doing things: not at all PHQ-9 8. Moving or speaking so slowly that other people could have noticed? - Or the opposite - being so fidgety or restless that you have been moving around a lot more than usual: not at all Source: Developed by Drs. Karol Rice, Rosalina Cueva, Rob Gregory and colleagues, with an educational bj from [employer]. Social History Living Situation History Housing: House Tobacco History Smoking Status: Former smoker tobacco type: e-cigarettes Second Hand Smoke Exposure: No Alcohol History Alcohol Intake: Never Domestic Abuse History Do You Feel Safe at Home: Yes Review of Systems Report any current symptoms Only answer those that you have currently: Past Medical History Past Medical History Have you ever been diagnosed with any of the following: Cardiology Problems Congestive Heart Failure: No Respiratory Problems Chronic Obstructive Pulmonary Disease (COPD): No Asthma: No Stomache/Intestinal Problems Hepatitis: No Genital/Urinary Problems Renal Disease: No Endocrine Problems Diabetes Mellitus Type 1: No Diabetes Mellitus Type 2: Yes Blood Problems Sickle Cell Disease: No Psychologic Problems Depression: Yes Anxiety: Yes Other Problems Autoimmune Disease: No Human Immunodeficiency Virus (HIV): No Chicken Pox: No Measles: No Mumps: No Rubella (Al[place]ian Measles): No Pertussis: No Clostridium Difficile: No Cancer: No History of Present Illness HPI Narrative Rahul Rosales is a 21-year-old male with past medical history of type 1 diabetes mellitus DKA, polysubstance use disorder, and general anxiety disorder who presents to clinic after recently being discharged from [facility] on 01/09. Originally admitted on 01/06 and found to be in DKA with blood glucose of 691, beta hydroxybutyrate 5.1, NAGMA and started on insulin drip. A1c greater than 14.0%. He was discharged with insulin glargine 40 units at night and 8 units lispro 3 times daily with meals. He was recently started on CGM 4 days prior to being seen in clinic. He has had 2 notifications for relative hypoglycemia in the 60s and 70s, in the bell spinner and evening. However, noted to be within range (90s, 100s) at other times but also has readings in the 300s after meals. Suspect that the units with meals may be causing relative hypoglycemia and recommend to start 6 units TID with meals and the patient continues to be hyperglycemic afterwards to take an additional 1 to 2 units depending on blood sugar levels. Counseled patient on importance of long-term management of diabetes as complications can occur with kidneys, vision, nerves, healing, and increased risk of severe infections. Patient understands and encouraged that these changes will require time and is not something to ma. Objective/Exam Narrative Physical exam: General: AOx3, no acute distress, able to speak full sentences HEENT: NC/AT, mucous membranes moist, bilateral sclera anicteric Cardiovascular: regular rate and rhythm, S1/S2 present, no murmurs appreciated Pulmonary: clear to auscultation bilaterally, no rales/rhonchi/wheezes Abdominal: soft, non-tender, non-distended, no rebound/guarding, normal bowel sounds present Musculoskeletal: normal ROM, no peripheral edema Skin: warm and dry, intact, no rashes Neuro: CN II-XII intact, no focal deficits Assessment & Plan Diagnosis / Problem List (1) Diabetes mellitus, insulin dependent (IDDM), uncontrolled: Status: Acute Assessment & Plan: Presents to [facility] after being admitted on 01/06/2025 and found to have DKA and A1c > 14%. Follows-up afterwards and has been on CGM for the last four days or so and at this time limited data as to make significant changes to his regimen. At this time, he is on 8 units with meals and basal insulin of 40 units glargine. Given limited data and episodes of hyperglycemia after meals, recommend to take an additional unit if blood sugar 200-250 and an additional two units if blood sugar >250. Otherwise, will plan to re-evaluate in two weeks with more data and will make further changes at that time. Plan: - Continue 8 units lispro with meals - If blood sugar 200-250, take an additional unit - If blood sugar >250, take total of two units - Continue 40 units glargine - Follow-up in two weeks to make additional changes - A1c 12/2024 > 14% and plan to re-check 03/2025 - Continue with continuous glucose monitor Office Procedures [facility] Level of Care Nursing/Assessment Patient Status: Established Patient Nursing Assessment/Reassessment: Medication Reconciliation, Update PMH in EMR and Vital Signs Coordination of Care: Complex Care and Chronic Disease 1-5, Consent,records obtained, informed consent, Education Simp Pt/Fam and Staff clarify orders Established Patient Charge Established Patient Point Assignment: 85 Established Patient Point Charge: EP Level 3 (80-115)
[2025-01-22 15:21] VITALS: BP 128/64; PULSE 100; RESP 18; TEMP 36.6; O2SAT 96
== END 2025-01-22 16:03 | disposition home or self-care (01) ==
LOC: HODAHC 15:12
PROVIDERS: Supervising Provider Internal Medicine
DX: E10.65 Type 1 diabetes mellitus with hyperglycemia (principal); F41.1 Generalized anxiety disorder; Z79.4 Long term (current) use of insulin
CPT/HCPCS: 99213; G0463